=== PATIENT | female | born 1950 | race Caucasian/White ===

== ENCOUNTER → 2024-11-28 | Outpatient (CLI) | payer MEDICARE, BC, SELFPAY ==
--- NOTE | 2024-11-28 10:15 | XR_ITS ---
Examination: Screening digital mammography, bilateral Computer aided detection 3-D breast Tomosynthesis, bilateral Date and time of exam: November 28, 2024 tendons 13 hours Compared to mammograms dating to August 20, 2016 Indication: Screening Technique: Nonmagnified MLO, CC views of the breasts to been obtained, reconstructed from 3-D Tomosynthesis images. R2 computer aided detection program utilized for evaluation of suspicious masses and/or abnormal calcifications. 3-D Tomosynthesis images obtained. Findings: Scattered areas of fibroglandular density Intact implants No interval suspicious masses Impression: BI-RADS category II: Benign Findings. Recommend 1 year follow-up mammogram.
== END | disposition home or self-care (01) ==
LOC: CDIM 10:06
PROVIDERS: PCP Nurse Practitioner Family; Referring Provider Nurse Practitioner Family; Visit Provider Nurse Practitioner Family
DX: Z12.31 Encounter for screening mammogram for malignant neoplasm of breast (principal); R92.323 Mammographic fibroglandular density, bilateral breasts; R92.1 Mammographic calcification found on diagnostic imaging of breast
CPT/HCPCS: 77063; 77067

== ENCOUNTER 2025-04-02 10:37 | Inpatient (IN) | payer MEDICARE, BC, SELFPAY ==
[2025-04-02] VITALS (14 sets, daily range): BP systolic 102–164; BP diastolic 56–91; PULSE 74–88; RESP 14–95; TEMP 36.2–36.8; O2SAT 90–98; BMI 26.5; BMI 29.3
--- NOTE | 2025-04-02 10:53 | XR_ITS ---
Examination: CT lumbar spine, without contrast. 2-D sagittal reconstructions. 2-D coronal reconstructions. 3-D reconstructions. Date and time of exam:April 02, 2025 1102 hours INDICATIONS: Lifting injury today followed by a lower back pain CTDI: vol (mGy):19.4 DLP: (mGycm):196 Technique: Multiple 1.25 mm axial sections of the lumbar spine without intravenous contrast have been obtained. 2-D sagittal and coronal reconstructions have been obtained. 3-D reconstructions have been obtained. Low dose protocols were performed. One or more of the following dose reduction techniques were used; automated exposure control, adjustment of the mA and/or KV according to patient size, use of iterative reconstruction technique. Findings: Severe osteopenia. No lumbar vertebral body compression fracture. Cortical bone destruction involving contiguous margins L5-S1 Pedicles laminated transverse and posterior spinous processes intact Sclerotic focus in the right first sacral segment, 10 mm, axial image 149 and 6 mm sclerotic focus posterior L1 vertebral body No focal disc protrusion IMPRESSION: Findings suspicious for osteomyelitis discitis L5-S1 level Sclerotic foci right first sacral segment and L1 vertebral body, consider osteoblastic metastatic disease Consider whole body bone scan follow-up
[2025-04-02] MEDS: HYDROcodone/APAP 5/325 TABLET 1 TAB PO (11:14)
[2025-04-02] MEDS: KETOROLAC INJ 60 MG/2 ML VIAL 30 MG IM (11:16)
--- NOTE | 2025-04-02 11:57 | PD.EDRME ---
Rapid Medical Screening Exam RME Arrival date/time: 04/02/25 10:37 74-year-old female presents to the Emergency Department for complaints of lower back pain Chief Complaint: Back Pain/Injury Time Seen by Provider: 04/02/25 10:53 Vital signs: Vital Signs Temperature 98.3 F 04/02/25 10:49 Pulse Rate 88 04/02/25 10:49 Respiratory Rate 16 04/02/25 10:49 Blood Pressure 150/89 H 04/02/25 10:49 Pulse Oximetry (%) 98 04/02/25 10:49 Oxygen Delivery Method Room Air 04/02/25 10:49
[2025-04-02 12:33] LABS: Lactate (Lactic Acid) 1.4 mMol/L (0.4-2.0)
[2025-04-02 12:35] LABS: Basophils # (Auto) 0.1 Thou/mm3 (0.0-0.2); Basophils % (Auto) 1 % (0-2.5); Eosinophils # (Auto) 0.1 Thou/mm3 (0.0-0.5); Eosinophils % (Auto) 1 % (0-10); Hematocrit 41.2 % (36.0-46.0); Hemoglobin 13.5 g/dL (12.0-16.0); Immature Granulocytes Auto 0.09 Thou/mm3 (0.00-0.00); Lymphocytes # (Auto) 2.6 Thou/mm3 (1.0-4.8); Lymphocytes % (Auto) 24 % (10-50); Mean Corpuscular HGB Conc 32.8 g/dl (31.0-37.0); Mean Corpuscular Hemoglobin 24.3 pg (25.0-35.0); Mean Corpuscular Volume 74 fL (80-100); Monocytes # (Auto) 0.8 Thou/mm3 (0.0-0.8); Monocytes % (Auto) 8 % (0-12); Neutrophils # (Auto) 7.0 Thou/mm3 (1.8-7.7); Neutrophils % (Auto) 66 % (37-80); Nucleated Red Blood Cell # 0.00 Thou/mm3 (0.00-0.00); Nucleated Red Blood Cell % 0 /100 WBC (0); Platelet Count 279 Thou/mm3 (140-440); RDW Standard Deviation 46.5 fL (36.4-46.3); Red Blood Count 5.55 Miln/mm3 (4.00-5.20); White Blood Count 10.6 Thou/mm3 (3.6-11.0)
[2025-04-02 12:49] LABS: INR 0.9 (0.9-1.3); Prothrombin Time 10.4 Seconds (9.0-12.2)
[2025-04-02 12:50] LABS: Sed Rate (ESR) 34 mm/hr (0-30)
[2025-04-02 12:59] LABS: Alanine Aminotransferase 24 U/L (10-49); Albumin, Serum 4.4 gm/dL (3.4-4.8); Albumin/Globulin Ratio 1.6 (1.2-2.2); Alkaline Phosphatase 123 U/L (46-116); Anion Gap 10 (7-16); Aspartate Amino Transferase 33 U/L (0-34); BUN/Creatinine Ratio 11 Ratio (12-20); Bilirubin,Total 1.0 mg/dL (0.3-1.2); Blood Urea Nitrogen 10 mg/dL (9-23); C-Reactive Protein 1.6 mg/dL (0.0-0.9); Calcium 9.3 mg/dL (8.3-10.6); Calcium (Corrected) 9.3 mg/dL (8.5-10.1); Carbon Dioxide 25.0 mMol/L (20.0-31.0); Chloride 103 mMol/L (98-107); Creatinine (Component) 0.9 mg/dL (0.6-1.3); Estimated Creatinine Clearance 51.5 mL/min (>60); Globulin 2.7 gm/dL (2.3-3.5); Glucose 112 mg/dL (74-106); Osmolality,Calculated 275 (275-295); Potassium 4.3 mMol/L (3.4-5.1); Procalcitonin 0.06 ng/ml (0.0-0.49); Sodium 138 mMol/L (136-145); Total Protein 7.1 gm/dL (5.7-8.2); eGFR > 60 See Note
[2025-04-02 13:03] LABS: Collection Type, Urine Clean Catch
[2025-04-02 13:06] LABS: Bacteria,Urine Rare; Bilirubin,Urine Negative (Negative); Blood,Urine Negative (Negative); Clarity,Urine Turbid (Clear/Hazy); Color,Urine Yellow (Lt Yel-Yel); Glucose, Urine Negative (Negative); Hyaline Casts,Urine < 1 /hpf (0-1); Ketones,Urine Negative (Negative); Leukocyte Esterase,Urine Positive (Negative); Nitrite,Urine Negative (Negative); PH,Urine 6.0 (5.0-7.0); Protein,Urine Negative (Neg - Trace); RBC,Urine 9 /hpf (0-3); Specific Gravity,Urine 1.023 (1.001-1.035); Squamous Epithelial Cell,Urine 7 /hpf (0-5); Urobilinogen,Urine Negative mg/dL (0.0-1.0); WBC,Urine 21 /hpf (0-5)
--- NOTE | 2025-04-02 13:06 | PD.EDADULT ---
ED General RME/HPI General Chief complaint: Back Pain/Injury Stated complaint: lower back pain x 5days Time Seen by Provider: 04/02/25 10:53 Arrival date/time: 04/02/25 10:37 RME / HPI RME / HPI narrative: 04/02/25 10:37 74-year-old female presents to the Emergency Department for complaints of lower back pain DR. VALENZUELA MAIN ED EVALUATION: 74 year old female with history of Lichen sclerosus, Crohn's disease, osteopenia, presents to the ED for evaluation of lower back pain that began 2 months ago. Pain is described as aching, localized to the lower back, and is worse on the right side. Reports that the pain typically resolves with Aleve. However, on , while doing yard work, she stumbled a few times, and since then the pain has worsened. Now experiencing difficulty managing the pain with [id number] medications. The pain is aggravated by movement, but she is still able to walk. Denies any loss of function in her arms or legs, and there is no reported saddle numbness or urinary/bowel incontinence. Related Data Home Medications ?Medication ?Instructions ?Recorded ?Confirmed No Known Home Medications 05/29/24 05/29/24 Allergies Allergy/AdvReac Type Severity Reaction Status Date / Time Sulfa (Sulfonamide Allergy Intermediate Rash Verified 04/02/25 10:40 Antibiotics) Review of Systems Review of Systems Systems Reviewed: All systems reviewed, normal except as documented Past Medical History Past Medical History NEUROLOGIC: Negative Neurological Disorders or Seizures CARDIAC: Negative Cardiac Disorders or Congestive Heart Failure RESPIRATORY: Positive Asthma; Negative Chronic Obstructive Pulmonary Disease (COPD) GASTROINTESTINAL: Positive Gastrointestinal Disorders, Gall Bladder Disease and Crohn's Disease GENITOURINARY: Negative Genitourinary Disorders or Renal Disease MUSCULOSKELETAL: Positive Musculoskeletal Disorders and Arthritis ENDOCRINE: Negative Endocrine Disorders, Diabetes Mellitus Type 1 or Diabetes Mellitus Type 2 HEMATOLOGIC: Negative Blood Disorders or Sickle Cell Disease OTHER HISTORY: Positive Chicken Pox, Measles and Mumps; Negative Blood Transfusions, Anesthesia Reactions or Cancer Surgical History SURGICAL: Positive Oral Surgery (wisdom teeth) and Section Social History SMOKING STATUS: Never smoker SUBSTANCE USE: does not use ED Exam Narrative Physical exam: Physical Exam: General: The vital signs were reviewed. The patient is non-toxic, in no apparent distress and appears healthy with a patent airway, no respiratory distress and has no apparent circulatory problems. Head & Scalp: Normocephalic, atraumatic. Face: Appears normal and is without lesions, deformity. Ears: Left external pinna appears normal. Right external pinna appears normal. Eyes: The sclera is anicteric. No obvious photophobia. The Left and Right Orbit/Lid/Conjunctiva appears normal without swelling, discoloration or injection. Nose: The nose is without deformity, discharge or tenderness; Throat: Appears normal. The mucous membranes are pink and moist without exudates, redness or mass seen. The tongue appears normal. Neck: The neck is supple and no apparent mass or adenopathy. Chest: The chest wall is normal in size and symmetry and has no chest wall tenderness or crepitus. The patient displays normal ventilator effort without retractions, accessory muscle use and has adequate air movement bilaterally with no wheezes and no rales. Cardiovascular: Regular rate and rhythm; No murmurs, rubs, or gallops; Gastrointestinal: The abdomen appears normal. No obvious hernias or mass. The abdomen is soft and benign, non-distended, with no pain, no guarding and no rebound tenderness. Bowel sounds are present and normal sounding. No CVA tenderness. Genitourinary: Back/Spine: Complains of lower lumbar pain but normal inspection Extremities/Musculoskeletal/lymphatic: The bilateral upper and lower extremities are warm. There is no evidence of arterial insufficiency. There is no evidence of venous insufficiency/edema. The patient spontaneously moves bilateral upper and lower extremities with no pain and no limitation of movement. There is no apparent, injury or trauma. Skin: The skin is warm, dry and intact. No rashes. No petechia. No purpura. No abnormal bruising. The color is appropriate with no cyanosis. Mental status/Psychiatric: Mental status is appropriate for age. The patient has no apparent delusions, visual hallucinations, no apparent audible hallucinations. The patient has no apparent suicidal thoughts/ideation and no apparent homicidal thoughts/ideation. Neurological: The patient is awake, alert, interactive, cordial, cooperative and is oriented to name and situation. The patient follows commands and answers historical question with no impairment. There is no visual disturbance apparent. The pupils are equal and reactive bilaterally with normal eye movements and no diplopia The bilateral upper and lower extremities have normal strength, normal range of motion and normal functioning. The gait, station and balance were not tested due to acuity and low back pain Course Quality Measures none Orders Category Date Time Status CT lumbar spine wo con Stat Exams 04/02/25 10:53 Completed Blood Culture (Lab) Stat Lab 04/02/25 12:07 Received CBC Stat Lab 04/02/25 12:07 Completed CMP [Comprehensive Metabolic Panel] Stat Lab 04/02/25 12:07 Completed CRP [C-Reactive Protein] Stat Lab 04/02/25 12:07 Completed ESR [Sed Rate (ESR)] Stat Lab 04/02/25 12:07 Completed Lactic Acid [Lactate (Lactic Acid)] Stat Lab 04/02/25 12:07 Completed PT [Prothrombin Time with INR] Stat Lab 04/02/25 12:07 Completed Procalcitonin Stat Lab 04/02/25 12:07 Completed UA, C/S IF [Urinalysis, C/S if Indicated] Stat Lab 04/02/25 12:56 Completed Urine Culture Stat Lab 04/02/25 12:56 Received HYDROcodone*/APAP 5/325 [Climax 5/325] Med 04/02/25 10:53 Discontinued 1 tab PO X1 ONE Ketorolac Inj [Toradol Inj] Med 04/02/25 10:53 Discontinued 30 mg IM X1 ONE Morphine Inj Med 04/02/25 13:44 Discontinued 4 mg IVP X1 ONE Ondansetron Inj [Zofran Inj] Med 04/02/25 13:44 Discontinued 4 mg IV X1 ONE Piper/Tazo 3.375 gm Premix [Zosyn] Med 04/02/25 13:42 Discontinued 3.375 gm in 50 ml IV X1 Vancomycin Inj 1,000 mg Med 04/02/25 13:42 Discontinued Sodium Chloride 0.9% 250 ml [Ns] 250 ml IV X1 Vital Signs Vital signs: Vital Signs Temperature 98.3 F 04/02/25 10:49 Pulse Rate 88 04/02/25 10:49 Respiratory Rate 16 04/02/25 10:49 Blood Pressure 150/89 H 04/02/25 10:49 Pulse Oximetry (%) 98 04/02/25 10:49 Oxygen Delivery Method Room Air 04/02/25 10:49 Pulse ox is 98% on room air which is adequate. Discharge Plan Plan Patient Disposition: Admit Acute Care w/in Hospital Discharge Disposition comment: Hospitalist admit Problem List Clinical Impression: Acute osteomyelitis of lumbar spine, Hx of Crohn's disease, Intractable back pain MDM Narrative [facility] hospital course: Patient is 74-year-old who comes in states she has had increasing and worsening low back pain for the past 2 months that is much worse in the last week. She also has history of Crohn's disease and lichen sclerosis. She has had no acute flares of Crohn's but has been on doses of prednisone in the past. Medical workup was initiated and reveals a white count of 10.6 hemoglobin 13.5 MCV of 74 PT/INR within normal limits. Electrolytes are normal kidney functions normal glucose 112 lactic acid 1.4. Transaminases are within normal limits. C-reactive protein was 1.6 slightly elevated. Urinalysis has 21 white cells and 7 squames is not on clean-catch urine and she currently has no urinary symptoms. Patient got some Toradol and hydrocodone tablet upfront and her pain is little bit better but she still is quite uncomfortable she barely moves CT scan of the back reveals osteomyelitis of her lumbar spine. I called the radiologist to discuss this with him he does not feel there is any obvious malignancy but they would not be against doing a bone scan or further workup for that. Clinically patient's where she has got evidence osteomyelitis will start on Vanco and Zosyn. I called the hospitalist they will be admitting. Clinical Information Provided by patient Medical Records Reviewed [facility] I reviewed ED visit on 02/12/2022 Meds/Rx Considered, not Ordered None Labs/Rad/Tests considered, not Ordered None Chronic Illness/Social Conditions which may negatively complicate care or outcome(s)-explain: None or not applicable EKG EKG not done Lab Interpretation Labs: see narrative above Imaging Imaging interpretation: see narrative above Radiology reports / interpretation(s): Ordering Physician: Dali CRAWFORD)Clemente NP Date of Service: 04/02/25 Procedure(s): CT lumbar spine wo con Accession Number(s): [id number] cc: Mercedes Mathis NP; Dali CRAWFORD)Clemente NP; Harjinder Chicas MD~ Examination: CT lumbar spine, without contrast. 2-D sagittal reconstructions. 2-D coronal reconstructions. 3-D reconstructions. Date and time of exam:April 02, 2025 1102 hours INDICATIONS: Lifting injury today followed by a lower back pain CTDI: vol (mGy):19.4 DLP: (mGycm):196 Technique: Multiple 1.25 mm axial sections of the lumbar spine without intravenous contrast have been obtained. 2-D sagittal and coronal reconstructions have been obtained. 3-D reconstructions have been obtained. Low dose protocols were performed. One or more of the following dose reduction techniques were used; automated exposure control, adjustment of the mA and/or KV according to patient size, use of iterative reconstruction technique. Findings: Severe osteopenia. No lumbar vertebral body compression fracture. Cortical bone destruction involving contiguous margins L5-S1 Pedicles laminated transverse and posterior spinous processes intact Sclerotic focus in the right first sacral segment, 10 mm, axial image 149 and 6 mm sclerotic focus posterior L1 vertebral body No focal disc protrusion IMPRESSION: Findings suspicious for osteomyelitis discitis L5-S1 level Sclerotic foci right first sacral segment and L1 vertebral body, consider osteoblastic metastatic disease Consider whole body bone scan follow-up Dictated By: Harjinder Chicas MD Signed By: <Electronically signed by Harjinder Chicas MD in [place]> 04/02/25 1145 Medication Administration(s) Medication Administration History Acetaminophen (Acetaminophen 325 Mg Tablet) 650 mg PO Q6H PRN PRN Reason: Mild Pain 1-3 or Fever 100.3 Stop: 05/02/25 14:12 Hydrocodone Bitart/Acetaminophen (Hydrocodone/Apap 5/325 Tablet) 1 tab PO Q4HR PRN PRN Reason: PAIN SCALE 4-6 (Moderate Stop: 04/07/25 14:12 Famotidine (Famotidine 20 Mg Tablet) 20 mg PO BID OSIEL Stop: 05/02/25 14:29 Last Admin: 04/02/25 15:06 Dose: 20 mg Documented By: CG Piperacillin/Tazobactam/Dextrose (Zosyn) 3.375 gm in 50 mls @ 12.5 mls/hr IV Q8HR OSIEL; Protocol Stop: 04/09/25 21:59 Morphine Sulfate (Morphine Sulf Inj 10 Mg/Ml Vial) 2 mg IVP Q4HR PRN PRN Reason: PAIN SCALE 7-10 (Severe Stop: 04/07/25 14:12 Ondansetron HCl (Ondansetron Inj 2 Mg/Ml Inj 2 Ml) 4 mg IVP Q6H PRN; Protocol PRN Reason: NAUSEA OR VOMITING Stop: 05/02/25 14:12 Pharmacy Consult (Vancomycin Pharmacy To Dose 1 Each Each) 1 each IV QDAY PRN PRN Reason: CONSULT Stop: 05/03/25 08:59 Sennosides (Senna Tablet) 1 tab PO QDAY OSIEL; Protocol Stop: 05/02/25 14:29 Last Admin: 04/02/25 15:05 Dose: 1 tab Documented By: CG Discontinued Medications Hydrocodone Bitart/Acetaminophen (Hydrocodone/Apap 5/325 Tablet) 1 tab PO X1 ONE Stop: 04/02/25 10:54 Last Admin: 04/02/25 11:14 Dose: 1 tab Documented By: Vancomycin HCl 1,000 mg/ (Sodium Chloride) 250 mls @ 120 mls/hr IV X1 ONE Stop: 04/02/25 15:46 Last Infusion: 04/02/25 17:14 Dose: Infused Documented By: Admin: 04/02/25 15:08 Dose: 120 mls/hr Documented By: CG Piperacillin/Tazobactam/Dextrose (Zosyn) 3.375 gm in 50 mls @ 100 mls/hr IV X1 ONE Stop: 04/02/25 14:11 Last Infusion: 04/02/25 15:40 Dose: Infused Documented By: Admin: 04/02/25 15:00 Dose: 100 mls/hr Documented By: CG Ketorolac Tromethamine (Ketorolac Inj 60 Mg/2 Ml Vial) 30 mg IM X1 ONE Stop: 04/02/25 10:54 Last Admin: 04/02/25 11:16 Dose: 30 mg Documented By: Morphine Sulfate (Morphine Sulf Inj 10 Mg/Ml Vial) 4 mg IVP X1 ONE Stop: 04/02/25 13:45 Last Admin: 04/02/25 15:05 Dose: 4 mg Documented By: CG Ondansetron HCl (Ondansetron Inj 2 Mg/Ml Inj 2 Ml) 4 mg IV X1 ONE; Protocol Stop: 04/02/25 13:45 Last Admin: 04/02/25 15:05 Dose: 4 mg Documented By: CG See above Diagnosis Most likely dx, and/or detailed dx discussion: Acute osteomyelitis Hx of Crohn's disease Intractable back pain Dispositon Disposition: Admit
[2025-04-02 13:07] LABS: Culture Indicated,Urine Yes
--- NOTE | 2025-04-02 14:13 | ECHO_ITS ---
Transthoracic Echo Report Ht (in): 63 Wt (lb): 150 Exam Location: Echo Lab Status: Emergency Site Safety Manager: Evonne Sierra Indications: Procedure Performed: BP: 158 / 91 HR: 75 Technical Quality: Technically difficult study MEASUREMENTS (Male / Female) Normal Values 2D ECHO LV Diastolic Diameter PLAX 4.0 cm 4.2 - 5.9 / 3.9 - 5.3 cm LV Systolic Diameter PLAX 2.6 cm IVS Diastolic Thickness 1.0 cm 0.6 - 1.0 / 0.6 - 0.9 cm LVPW Diastolic Thickness 1.0 cm 0.6 - 1.0 / 0.6 - 0.9 cm LV Relative Wall Thickness 0.5 LVOT Diameter 1.6 cm Aortic Root Diameter 2.8 cm LA Volume Index 14.3 cm?/m? 16 - 28 cm?/m? M-MODE Aortic Root Diameter MM 2.6 cm LA Systolic Diameter MM 3.4 cm LA Ao Ratio MM 1.3 AV Cusp Separation MM 2.1 cm DOPPLER AV Peak Velocity 102.0 cm/s AV Peak Gradient 4.2 mmHg AV Mean Gradient 2.0 mmHg AV Velocity Time Integral 21.9 cm LVOT Peak Velocity 90.9 cm/s LVOT Peak Gradient 3.3 mmHg LVOT Velocity Time Integral 21.0 cm LVOT Cardiac Index 1693.1 cm?/min?m? AV Area Cont Eq vti 1.8 cm? AV Area Cont Eq pk 1.7 cm? MV Area PHT 3.8 cm? Mitral E Point Velocity 43.2 cm/s Mitral A Point Velocity 75.2 cm/s Mitral E to A Ratio 0.6 LV E' Lateral Velocity 7.7 cm/s Mitral E to LV E' Lateral Ratio 5.6 LV E' Septal Velocity 7.2 cm/s Mitral E to LV E' Septal Ratio 6.0 PV Peak Velocity 90.9 cm/s PV Peak Gradient 3.3 mmHg FINDINGS Left Ventricle Normal left ventricular size, wall thickness, systolic function with no obvious regional wall motion abnormalities. The ejection fraction is visually estimated at 65%. There is grade I diastolic dysfunction of the left ventricle (impaired relaxation pattern). Right Ventricle The right ventricle is normal in size and systolic function. Left Atrium The left atrium is normal by two-dimensional, color flow and Doppler imaging with no structural abnormalities, no thrombus formation present. Right Atrium The right atrium is normal by two-dimensional imaging, color flow and Doppler imaging with no structural abnormalities, no thrombus formation present. Atrial Septum The interatrial septum appears normal with no evidence of a shunt. Aorta The aorta is normal by two-dimensional, color flow and Doppler interrogation. Mitral Valve The mitral valve is normal by two-dimensional, color flow and Doppler interrogation. There is no significant mitral valve regurgitation, stenosis or prolapse. Aortic Valve The aortic valve is trileaflet and normal by two-dimensional, color flow and Doppler interrogation. There is no significant aortic valve regurgitation. Tricuspid Valve The tricuspid valve is normal by two-dimensional, color flow and Doppler interrogation. There is no significant tricuspid valve regurgitation. Pulmonic Valve The pulmonic valve is not well visualized. There is no significant pulmonic valve regurgitation. Vessels The pulmonary artery appears normal. The inferior vena cava pulmonary and hepatic veins appear normal. Pericardium The pericardium is normal by two-dimensional imaging. There is no significant pericardial effusion. CONCLUSIONS Indication: Osteomyelities, rule out endocarditis Normal LV size Estimated EF 65-70%. Grade I diastolic dysfunction. Normal RV size and function. Normal RVSP. No clear vegetation noted but TTE suboptimal to rule out any endocarditis. Consider AMELIA if high clinical risk of suspicion. Trace TRRamila Jennings (Electronically Signed) Final Date: 02 April 2025 23:15
[2025-04-02] MEDS: PIPER/TAZO 3.375 GM PREMIX 3.375 GM/50 ML BAG IV ×2 (15:00→22:18)
[2025-04-02] MEDS: MORPHINE SULF INJ 10 MG/ML VIAL 4 MG IVP (15:05)
[2025-04-02] MEDS: ONDANSETRON INJ 2 MG/ML INJ 2 ML 4 MG IV (15:05)
[2025-04-02] MEDS: FAMOTIDINE 20 MG TABLET PO ×2 (15:06→22:17)
[2025-04-02] MEDS: Vancomycin Inj 1,000 MG in SODIUM CHLORIDE 0.9% 250 ML 250 ML 120 MG IV (15:08)
--- NOTE | 2025-04-02 16:21 | XR_ITS ---
Examination: MRI lumbar spine, without intravenous contrast. MRI lumbar spine , with intravenous contrast. Exam date and time: April 02, 2025 1922 hours INDICATIONS: Low back pain months, cortical bone destruction contiguous margins L5-S1 on CT lumbar spine today Technique: Multiple axial, sagittal and coronal images of the lumbar spine have been obtained with the Siemens high-resolution 1.5 Josefa MRI scanner. Images obtained included T2 weighted fat suppressed sagittal sections, TR 3500, TE 46, T2 weighted coronal fat suppressed images, TR 3050, TE 84, T2-weighted transverse fat suppressed images, TR 30-60, TE 63, proton density transverse images, TR 4720, TE 46, and T1 weighted coronal images, TR 560, TE 13. Axial, sagittal and coronal images are obtained post intravenous injection of 13 cc gadolinium. Findings: Advanced disc narrowing L5-S1 with cortical erosion involving the contiguous endplates Postcontrast images demonstrate enhancement of the L5-S1 disc although not the vertebral bodies There also is enhancement of the L2-L3 disc Diffuse lumbar disc desiccation No lumbar fracture Minor lumbar disc bulges L4-L5, L5-S1 IMPRESSION: No findings diagnostic for osteomyelitis Mild discitis at the L5-S1, L2-L3 level
--- NOTE | 2025-04-02 18:00 | PD.RESHP ---
Documentation for date of: 04/02/25 Luis is a 74 year old female with a limited past medical history of Crohns disease with follows Dr. Anders on prednisone as needed for flare ups. Previous colonoscopy with Dr. Anders 2023. Patient presented with worsening lower back pain that began approximetly 1 month ago. Patient denied trauma to area or any recent punctures/surgical interventions. Previously prescribed tramaodol by pcp which had kept pain tolerable but within the last 5 days worsening. Patient deneid urinary incontinence and continues to have full range of motion with bilateral lower extremities. No elevated WBC count. Microcytic anemia noted, likely in the setting of Crohns disease, outpaitnet follow up. CRP 1.6. [facility] CT noted for Sclerotic foci at L1 vertebral body, consider osteoblastic metastitc disease, outpatient follow up with whole body bone scan. Concern for osteomyelitis L5-S1. Patient admitted intractable back pain, failed out patient pain managment and concern for osteomyelitis. IV antibiotics started. [facility] MRI spine. Pending blood cultures. Consider CT guided bone biopsy. Dr. Cleaning consulted. Echo pending. Blood cutlures pending. Patient may benefit from dexa bone scan outpatient. HPI History of Present Illness History of present illness: 74 year old female with PMH of Lichen sclerosus, Crohn's disease, osteopenia, presented to the ED on 04/02/2020 with lower back pain started roughly 1 month ago. She noted that her lower back pain started while doing gardening work. Lower back pain worsened 5 days ago when she was trying to lift an object at her garden. Tried [id number] pain medication but pain was no longer tolerable. Pain is at the lower back and also radiates to the right side. Pain is worsened by movement but she can still walk. She denied any weakness in her upper and lower extremities. Denied any recent injuries, cut, surgeries. She does not have any chest pain, palpitations, headache, dizziness, fevers, or chills. Medical history: As stated above Surgical history: Right knee replacement in [address] Freddie Howard in [place], Allergies: See list in the EMR Medications: Pending official med rec Family history: Father had CABG at 80s, Mother has liver cancer at 90s and due to sepsis. Social history: Denies smoking cigarettes, drinking alcohol or using other illicit drugs ROS: All 12 systems assessed and the patient denies unless otherwise stated in HPI In the ED, patient had a white count of 10.6 hemoglobin 13.5 MCV of 74 PT/INR within normal limits. Electrolytes are normal kidney functions normal glucose 112 lactic acid 1.4. Transaminases are within normal limits. C-reactive protein was 1.6 slightly elevated. Urinalysis has 21 white cells and 7 squames is not on clean-catch urine and she had no urinary symptoms. Received toradol and hydrocodone tablet for pain. CT scan of the back revealed osteomyelitis of her lumbar spine and possible osteoblastic metastatic disease. Recommended body bone scan follow up. Patient started on vancomycin and zosyn. Patient will be admitted for management of her osteomyelitis and possible osteoblastic metastatic disease. Exam Vital Signs Temp Pulse Resp BP Pulse Ox O2 Del Method 98.0 F 76 14 102/56 L 96 Room Air 04/02/25 16:33 04/02/25 16:33 04/02/25 16:33 04/02/25 16:33 04/02/25 16:33 04/02/25 16:33 Narrative Exam General: No acute distress, well nourished Eye: PERRL, EOMI, normal conjunctiva, no scleral icterus HENT: Normocephalic, atraumatic, hearing intact to conversation at normal volume, moist oral mucosa Neck: Supple, non-tender, no JVD, no lymphadenopathy Lungs: Non-labored respirations, symmetric chest rise, Clear to auscultate bilaterally Heart: Peripheral pulses intact bilaterally Abdomen: Soft, non-tender, non-distended Musculoskeletal: Normal range of motion and strength Skin: Skin is warm, dry, no rashes or lesions. Psychiatric: Cooperative, appropriate mood and affect Neuro: Cranial nerves II-XII grossly intact. Strength 5/5 throughout. Sensations intact to light touch. Results: Labs 04/03/25 05:40 04/03/25 05:40 Labs: Short CBC 04/02/25 Range/Units 12:07 WBC 10.6 (3.6-11.0) Thou/mm3 Hgb 13.5 (12.0-16.0) g/dL Hct 41.2 (36.0-46.0) % Plt Count 279 (140-440) Thou/mm3 BMP 04/02/25 12:07 Sodium 138 Potassium 4.3 Chloride 103 Carbon Dioxide 25.0 BUN 10 Creatinine 0.9 Glucose 112 H Calcium 9.3 Liver Function 04/02/25 Range/Units 12:07 Total Bilirubin 1.0 (0.3-1.2) mg/dL AST 33 (0-34) U/L ALT 24 (10-49) U/L Alkaline Phosphatase 123 H (46-116) U/L Albumin 4.4 (3.4-4.8) gm/dL Urine 04/02/25 Range/Units 12:56 Urine Color Yellow (Lt Yel-Yel) Urine Clarity Turbid A (Clear/Hazy) Urine pH 6.0 (5.0-7.0) Ur Specific [place] 1.023 (1.001-1.035) Urine Protein Negative (Neg - Trace) Urine Glucose (UA) Negative (Negative) Quality Measures Quality Measures none Advance care planning discussed with:: patient Medications Home Medications and Allergies Home Medications ?Medication ?Instructions ?Recorded ?Confirmed ?Type tramadol 50 mg tablet 50 mg PO Q4H PRN pain 04/02/25 04/02/25 History Allergies Allergy/AdvReac Type Severity Reaction Status Date / Time Sulfa (Sulfonamide Allergy Intermediate Rash Verified 04/02/25 10:40 Antibiotics) Visit Medications Acetaminophen (Acetaminophen 325 Mg Tablet) 650 mg PO Q6H PRN PRN Reason: Mild Pain 1-3 or Fever 100.3 Stop: 05/02/25 14:12 Hydrocodone Bitart/Acetaminophen (Hydrocodone/Apap 5/325 Tablet) 1 tab PO Q4HR PRN PRN Reason: PAIN SCALE 4-6 (Moderate Stop: 04/07/25 14:12 Famotidine (Famotidine 20 Mg Tablet) 20 mg PO BID OSIEL Stop: 05/02/25 14:29 Last Admin: 04/02/25 15:06 Dose: 20 mg Piperacillin/Tazobactam/Dextrose (Zosyn) 3.375 gm in 50 mls @ 12.5 mls/hr IV Q8HR [facility]; Protocol Stop: 04/09/25 21:59 Morphine Sulfate (Morphine Sulf Inj 10 Mg/Ml Vial) 2 mg IVP Q4HR PRN PRN Reason: PAIN SCALE 7-10 (Severe Stop: 04/07/25 14:12 Ondansetron HCl (Ondansetron Inj 2 Mg/Ml Inj 2 Ml) 4 mg IVP Q6H PRN; Protocol PRN Reason: NAUSEA OR VOMITING Stop: 05/02/25 14:12 Pharmacy Consult (Vancomycin Pharmacy To Dose 1 Each Each) 1 each IV QDAY PRN PRN Reason: CONSULT Stop: 05/03/25 08:59 Sennosides (Senna Tablet) 1 tab PO QDAY OSIEL; Protocol Stop: 05/02/25 14:29 Last Admin: 04/02/25 15:05 Dose: 1 tab Discontinued Medications Hydrocodone Bitart/Acetaminophen (Hydrocodone/Apap 5/325 Tablet) 1 tab PO X1 ONE Stop: 04/02/25 10:54 Last Admin: 04/02/25 11:14 Dose: 1 tab Vancomycin HCl 1,000 mg/ (Sodium Chloride) 250 mls @ 120 mls/hr IV X1 ONE Stop: 04/02/25 15:46 Last Infusion: 04/02/25 17:14 Dose: Infused Piperacillin/Tazobactam/Dextrose (Zosyn) 3.375 gm in 50 mls @ 100 mls/hr IV X1 ONE Stop: 04/02/25 14:11 Last Infusion: 04/02/25 15:40 Dose: Infused Ketorolac Tromethamine (Ketorolac Inj 60 Mg/2 Ml Vial) 30 mg IM X1 ONE Stop: 04/02/25 10:54 Last Admin: 04/02/25 11:16 Dose: 30 mg Morphine Sulfate (Morphine Sulf Inj 10 Mg/Ml Vial) 4 mg IVP X1 ONE Stop: 04/02/25 13:45 Last Admin: 04/02/25 15:05 Dose: 4 mg Ondansetron HCl (Ondansetron Inj 2 Mg/Ml Inj 2 Ml) 4 mg IV X1 ONE; Protocol Stop: 04/02/25 13:45 Last Admin: 04/02/25 15:05 Dose: 4 mg Assessment & Plan Plan 74 year old female with PMH of Lichen sclerosus, Crohn's disease, osteopenia, presented to the ED on 04/02/2020 with lower back pain started roughly 1 month ago and worsened 5 days ago after trying to lift an object. Patient will be admitted for management of her osteomyelitis and possible osteoblastic metastatic disease. #Intractable Lumbar Pain #Possible Osteomyelitis -VS spinal metastasis. Patient has had lower back pain that has been lasting for 1 month and suddenly getting worse after lifting. -Temp: 97.2F, WBC:10.6, ESR:34 and CRP:1.6, Minimally elevated ESR and CRP on admission. -Lumbar spine CT (04/02/2025): Findings suspicious for osteomyelitis discitis L5-S1 level, Sclerotic foci right first sacral segment and L1 vertebral body, consider osteoblastic metastatic disease. Plan: -F/u on Blood Culture and Urine culture -F/u on CBC -ECHO ordered to r/o endocarditis. -MRI lumbar w/ and w/o contrast pending -After MRI, consider bone biopsy -Continue IV Vancomycin and IV Zoysn 3.375g #Osteoblastic metastatic disease -Lumbar spine CT (04/02/2025): consider osteoblastic metastatic disease. -Referral to Outpatient whole body bone scan. #Crohn's disease -Mesalamine listed as home medication but patient was only taking prednisone as a flare-up -Currently has Dr. Anders as a GI specialist Disposition: Admitted for possible osteomyelitis. Pending Blood culture and MRI lumbar w/ and w/o Diet: Regular GI prophylaxis: Famotidine DVT prophylaxis: SCD Code: FULL Assessment and plan discussed with my attending physician Dr. Willingham and Dr. Aparicio (PGY-2) Dr. Martell (PGY-1)- Internal medicine resident - The patient's plan was discussed with attending Dr. Maulik Aparicio MD PGY2 Internal Medicine Attending Provider Attestation/Addendum I have examined the patient, reviewed labs and imaging findings, discussed the case with the resident(s), and reviewed entered orders. I agree with the plan of care as outlined in this note, with these additional summaries/recommendations: After examination of the patient and review of the clinical data, I feel that this patient needs admission to the hospital for further treatment and evaluation. Patient is a 74-year-old female with a medical history of Crohn's disease on as needed prednisone, lichen sclerosis, osteopenia, and chronic lower back pain presents to [facility] emergency department on 04/02/2025 with chief complaint of intractable back pain and failed outpatient pain management. Patient seen at bedside. She endorses severe intractable back pain. Lumbar spine revealed suspicion for osteomyelitis/discitis at L5-S1 level. ESR 34 and CRP 1.6. Patient does take intermittent prednisone although no clear source for osteomyelitis of the spine. We will obtain MRI spine to evaluate if osteomyelitis is present. Continue IV antibiotics and consult in-house infectious disease. Order blood cultures and follow-up results when available. Continue pain management and obtain physical therapy evaluation. Lumbar spine CT also revealed sclerotic foci in first sacral segment and L1 vertebral body suspicious for osteoblastic metastatic disease and we will evaluate further with MRI. Patient will likely need whole-body scan in the future. Patient's Crohn's disease appears stable and we will defer prednisone for now in the setting of possible infection. Urinalysis suspicious for urinary tract infection although patient has no urinary symptoms to report at this time indicating asymptomatic bacteriuria. Patient updated on the plan and agreement. All questions answered to satisfaction. Please see residents note for additional details and management. Dr. Maulik MD
--- NOTE | 2025-04-02 19:15 | PC.NURSE ---
Fitter Type Bar And Segment assumes care of patient at this time, pt in currently in MRI,
--- NOTE | 2025-04-02 20:05 | PC.NURSE ---
Patient returned from MRI, with c/o back pain 1/10 level at this time, Pt is A/O x 3 with noted full ROM and noted steady gait with transfer from wheelchair to [facility]. No acute breathing distress noted
--- NOTE | 2025-04-02 20:55 | PC.NURSE ---
Report called to floor nurse, CRISTINA Sahu
[2025-04-03] VITALS (9 sets, daily range): BP systolic 115–148; BP diastolic 64–88; PULSE 75–100; RESP 16–98; TEMP 36.1–36.9; O2SAT 92–95
[2025-04-03] MEDS: HYDROcodone/APAP 5/325 TABLET 1 TAB PO ×2 (05:58→20:11)
[2025-04-03] MEDS: PIPER/TAZO 3.375 GM PREMIX 3.375 GM/50 ML BAG IV ×2 (05:59→14:10)
[2025-04-03 06:19] LABS: Basophils # (Auto) 0.1 Thou/mm3 (0.0-0.2); Basophils % (Auto) 1 % (0-2.5); Eosinophils # (Auto) 0.3 Thou/mm3 (0.0-0.5); Eosinophils % (Auto) 4 % (0-10); Hematocrit 37.8 % (36.0-46.0); Hemoglobin 11.9 g/dL (12.0-16.0); Immature Granulocytes Auto 0.06 Thou/mm3 (0.00-0.00); Lymphocytes # (Auto) 2.0 Thou/mm3 (1.0-4.8); Lymphocytes % (Auto) 27 % (10-50); Mean Corpuscular HGB Conc 31.5 g/dl (31.0-37.0); Mean Corpuscular Hemoglobin 24.3 pg (25.0-35.0); Mean Corpuscular Volume 77 fL (80-100); Monocytes # (Auto) 0.8 Thou/mm3 (0.0-0.8); Monocytes % (Auto) 11 % (0-12); Neutrophils # (Auto) 4.2 Thou/mm3 (1.8-7.7); Neutrophils % (Auto) 57 % (37-80); Nucleated Red Blood Cell # 0.00 Thou/mm3 (0.00-0.00); Nucleated Red Blood Cell % 0 /100 WBC (0); Platelet Count 289 Thou/mm3 (140-440); RDW Standard Deviation 48.4 fL (36.4-46.3); Red Blood Count 4.90 Miln/mm3 (4.00-5.20); White Blood Count 7.4 Thou/mm3 (3.6-11.0)
[2025-04-03 06:40] LABS: Alanine Aminotransferase 59 U/L (10-49); Albumin, Serum 3.7 gm/dL (3.4-4.8); Albumin/Globulin Ratio 1.7 (1.2-2.2); Alkaline Phosphatase 132 U/L (46-116); Anion Gap 9 (7-16); Aspartate Amino Transferase 88 U/L (0-34); BUN/Creatinine Ratio 14 Ratio (12-20); Bilirubin,Total 1.0 mg/dL (0.3-1.2); Blood Urea Nitrogen 15 mg/dL (9-23); Calcium 8.9 mg/dL (8.3-10.6); Calcium (Corrected) 9.1 mg/dL (8.5-10.1); Carbon Dioxide 29.3 mMol/L (20.0-31.0); Cardiac Risk Estimate 3.0 RATIO (3.7-5.6); Chloride 104 mMol/L (98-107); Cholesterol 161 mg/dL (132-200); Creatinine (Component) 1.1 mg/dL (0.6-1.3); Estimated Creatinine Clearance 44.2 mL/min (>60); Globulin 2.2 gm/dL (2.3-3.5); Glucose 120 mg/dL (74-106); HDL Cholesterol 53 mg/dL (40-60); LDL Cholesterol,Calculated 81 mg/dL (0-130); Magnesium 1.8 mg/dL (1.6-2.6); Osmolality,Calculated 284 (275-295); Phosphorous 3.9 mg/dL (2.4-5.1); Potassium 4.5 mMol/L (3.4-5.1); Sodium 142 mMol/L (136-145); Total Protein 5.9 gm/dL (5.7-8.2); Triglycerides 134 mg/dL (30-150); eGFR 53 See Note
[2025-04-03] MEDS: MORPHINE SULF INJ 10 MG/ML VIAL 2 MG IVP ×3 (06:46→19:20)
--- NOTE | 2025-04-03 09:25 | PD.RESPRO ---
Documentation for date of: 04/03/25 Senior resident attestation: Patient evaluated and examined at the bedside, plan of care discussed with rest of the team including my attending physician, except as noted. Patient is a 74-year-old female with a past medical history of Crohn's disease, who presented to the ER complaining of lower back pain, which made it difficult to even turn in bed. Imaging was ordered in the ER, CT was concerning for osteomyelitis discitis L5-S1 level, also found soft aortic foci sacral long segment, concern for osteoblastic metastatic disease. MRI was ordered which showed no findings diagnostic of osteomyelitis but mild discitis L5-S1 L2-L3 level. Patient was started on IV vancomycin and Zosyn, consulted ID specialist Dr Cleaning. Currently requiring IV antibiotics and pain, pending blood cultures. Quresh PGY3 Subjective Subjective Interval history: No Overnight events. Labs reviewed and patient examined at the bedside. Lumbar MRI w/ and w/o contrast revealed No findings diagnostic for osteomyelitis and Mild discitis at the L5-S1, L2-L3 level. Currently following Infectious Disease specialist, Dr. Cleaning for future plans. Patient only has mild pain at lower back. Has given morphine 4mg IV x1 and [place] 5/325 PO q4hr prn. Denies any heart palpitation, chest pain, Shortness of breath, fever, or chills. Exam Vital Signs Temp Pulse Resp BP Pulse Ox O2 Del Method 97.2 F 100 18 148/88 H 92 L Nasal Cannula 04/03/25 08:00 04/03/25 08:00 04/03/25 08:00 04/03/25 08:00 04/03/25 08:00 04/03/25 08:00 Narrative Exam General: No acute distress, well nourished Eye: PERRL, EOMI, normal conjunctiva, no scleral icterus HENT: Normocephalic, atraumatic, hearing intact to conversation at normal volume, moist oral mucosa Neck: Supple, non-tender, no JVD, no lymphadenopathy Lungs: Non-labored respirations, symmetric chest rise, Clear to auscultate bilaterally Heart: Peripheral pulses intact bilaterally Abdomen: Soft, non-tender, non-distended Musculoskeletal: Normal range of motion and strength. Mild Pain in lower back Skin: Skin is warm, dry, no rashes or lesions. Psychiatric: Cooperative, appropriate mood and affect Neuro: Cranial nerves II-XII grossly intact. Strength 5/5 throughout. Sensations intact to light touch. Objective Labs 04/04/25 05:23 04/04/25 05:23 Labs: Laboratory Results - last 24 hr 04/02/25 04/02/25 04/03/25 12:07 12:56 05:40 WBC 10.6 7.4 RBC 5.55 H 4.90 Hgb 13.5 11.9 L Hct 41.2 37.8 MCV 74 L 77 L MCH 24.3 L 24.3 L MCHC 32.8 31.5 RDW Std Deviation 46.5 H 48.4 H Plt Count 279 289 Neut % (Auto) 66 57 Lymph % (Auto) 24 27 [place] % (Auto) 8 11 Eos % (Auto) 1 4 Baso % (Auto) 1 1 Neut # (Auto) 7.0 4.2 Lymph # (Auto) 2.6 2.0 [place] # (Auto) 0.8 0.8 Eos # (Auto) 0.1 0.3 Baso # (Auto) 0.1 0.1 Immature Gran # (Auto) 0.09 H 0.06 H Absolute Nucleated RBC 0.00 0.00 Immature Gran % 1 H 1 H Nucleated RBC % 0 0 ESR 34 H PT 10.4 INR 0.9 Sodium 138 142 Potassium 4.3 4.5 Chloride 103 104 Carbon Dioxide 25.0 29.3 Anion Gap 10 9 BUN 10 15 Creatinine 0.9 1.1 Estim Creat Clear Calc 51.5 L 44.2 L eGFR > 60 53 L BUN/Creatinine Ratio 11 L 14 Glucose 112 H 120 H Calculated Osmolality 275 284 Lactic Acid 1.4 Calcium 9.3 8.9 Corrected Calcium 9.3 9.1 Phosphorus 3.9 Magnesium 1.8 Total Bilirubin 1.0 1.0 AST 33 88 H ALT 24 59 H Alkaline Phosphatase 123 H 132 H C-Reactive Prot, Quant 1.6 H Total Protein 7.1 5.9 Albumin 4.4 3.7 D Globulin 2.7 2.2 L Albumin/Globulin Ratio 1.6 1.7 Triglycerides 134 Cholesterol 161 LDL Cholesterol, Calc 81 HDL Cholesterol 53 Cholesterol/HDL Ratio 3.0 L Procalcitonin 0.06 Ur Collection Type Clean Catch Urine Color Yellow Urine Clarity Turbid A Urine pH 6.0 Ur Specific [place] 1.023 Urine Protein Negative Urine Glucose (UA) Negative Urine Ketones Negative Urine Blood Negative Urine Nitrite Negative Urine Bilirubin Negative Urine Urobilinogen (Auto) Negative Ur Leukocyte Esterase Positive Urine RBC 9 H Urine WBC 21 H Ur Squamous Epith Cells 7 H Urine Bacteria Rare Hyaline Casts < 1 Ur Culture Indicated? Yes Quality Measures Quality Measures none Advance care planning discussed with:: patient Assessment & Plan Assessment Current Active Medications: Generic Name Dose Route Start Last Admin Trade Name Freq PRN Reason Stop Dose Admin Acetaminophen 650 mg 04/02/25 14:13 Acetaminophen 325 Mg Tablet PO 05/02/25 14:12 Q6H PRN Mild Pain 1-3 or Fever 100.3 Hydrocodone Bitart/Acetaminophen 1 tab 04/02/25 14:13 04/03/25 05:58 Hydrocodone/Apap 5/325 Tablet PO 04/07/25 14:12 1 tab Q4HR PRN Administration PAIN SCALE 4-6 (Moderate Famotidine 20 mg 04/02/25 14:30 04/02/25 22:17 Famotidine 20 Mg Tablet PO 05/02/25 14:29 20 mg BID OSIEL Administration Hydralazine HCl 10 mg 04/02/25 18:08 Hydralazine Inj 20 Mg/Ml Vial IVP 05/02/25 18:07 Q6HR PRN Hypertension Piperacillin/Tazobactam/Dextrose 3.375 gm in 50 mls @ 12.5 mls/hr 04/02/25 22:00 04/03/25 05:59 Zosyn IV 04/09/25 21:59 12.5 mls/hr Q8HR OSIEL Administration Protocol Vancomycin HCl 250 mls @ 120 mls/hr 04/03/25 10:00 Vancomycin/Water 1250 Mg Ivpb IV 04/10/25 09:59 QDAY@1000 OSIEL Morphine Sulfate 2 mg 04/02/25 14:13 04/03/25 06:46 Morphine Sulf Inj 10 Mg/Ml Vial IVP 04/07/25 14:12 2 mg Q4HR PRN Administration PAIN SCALE 7-10 (Severe Ondansetron HCl 4 mg 04/02/25 14:13 Ondansetron Inj 2 Mg/Ml Inj 2 Ml IVP 05/02/25 14:12 Q6H PRN NAUSEA OR VOMITING Protocol Pharmacy Consult 1 each 04/03/25 09:00 Vancomycin Pharmacy To Dose 1 Each Each IV 05/03/25 08:59 QDAY PRN CONSULT Sennosides 1 tab 04/02/25 14:30 04/02/25 15:05 Senna Tablet PO 05/02/25 14:29 1 tab QDAY OSIEL Administration Protocol Plan 74 year old female with PMH of Lichen sclerosus, Crohn's disease, osteopenia, presented to the ED on 04/02/2020 with lower back pain started roughly 1 month ago and worsened 5 days ago after trying to lift an object. Patient will be admitted for management of her discitis and possible osteoblastic metastatic disease. #Discitis L5-S1, L2-L3 -Temp: 97.2F, WBC:10.6, ESR:34 and CRP:1.6, Minimally elevated ESR and CRP on admission. -Lumbar spine CT (04/02/2025): Findings suspicious for osteomyelitis discitis L5-S1 level, Sclerotic foci right first sacral segment and L1 vertebral body, consider osteoblastic metastatic disease. Plan: -F/u on Blood Culture and Urine culture. Blood culture no growth for 24hrs. -ECHO: No clear vegetation noted but TTE suboptimal to rule out any endocarditis.Normal LV size Estimated EF 65-70%. Grade I diastolic dysfunction. -MRI lumbar w/ and w/o contrast: No findings diagnostic for osteomyelitis, Mild discitis at the L5-S1, L2-L3 level -After MRI, consider bone biopsy -Continue IV Vancomycin and IV Zoysn 3.375g -Currently following Infectious Disease specialist, Dr. Cleaning for future plans. #?Osteoblastic metastatic disease -Lumbar spine CT (04/02/2025): consider osteoblastic metastatic disease. -Referral to Outpatient whole body bone scan. #Crohn's disease -Mesalamine listed as home medication but patient was only taking prednisone as a flare-up -Currently has Dr. Anders as a GI specialist Disposition: Admitted for possible osteomyelitis. Pending Blood culture and MRI lumbar w/ and w/o Diet: Regular GI prophylaxis: Famotidine DVT prophylaxis: SCD Code: FULL Assessment and plan discussed with my attending physician Dr. Willingham and Dr. Mar (PGY-3) Dr. Martell (PGY-1)- Internal medicine resident Attending Provider Attestation/Addendum I have examined the patient, reviewed labs and imaging findings, discussed the case with the resident(s), and reviewed entered orders. I agree with the plan of care as outlined in this note, with these additional summaries/recommendations: Patient is a 74-year-old female with a medical history of Crohn's disease on as needed prednisone, lichen sclerosis, osteopenia, and chronic lower back pain presents to [facility] emergency department on 04/02/2025 with chief complaint of intractable back pain and failed outpatient pain management. Patient seen at bedside. No acute overnight events. She reports improvement in back pain after starting pain regimen. On admission Lumbar spine revealed suspicion for osteomyelitis/discitis at L5-S1 level. ESR 34 and CRP 1.6. Patient does take intermittent prednisone although no clear source for osteomyelitis of the spine. MRI lumbar spine was obtained which revealed no findings diagnostic of osteomyelitis but did reveal discitis at L5-S1 level suspicious for osteo. Continue IV antibiotics and consult in-house infectious disease. F/U cx results. Continue pain management and we will discuss with patient about bone biopsy. Lumbar spine CT also revealed sclerotic foci in first sacral segment and L1 vertebral body suspicious for osteoblastic metastatic disease and no evidence on MRI. Patient's Crohn's disease appears stable and we will defer prednisone for now. Patient updated on the plan and agreement. All questions answered to satisfaction. Please see residents note for additional details and management. Dr. Maulik MD
[2025-04-03] MEDS: VANCOMYCIN/WATER 1250 MG IVPB 250 ML 120 MG IV (10:00)
[2025-04-03] MEDS: FAMOTIDINE 20 MG TABLET PO (10:00)
--- NOTE | 2025-04-03 10:17 | PC.SS ---
Initial assessment: Patient is a 74-year old female admitted for osteomyelitis. Patient was able to confirm her demographic information. Patient informs she lives alone, but half of the week her life partner Anatoly Brothers stays with her. Patient assigned her daughter, Sherri Llamas as her emergency contact. Patient informs she is independent with ADL's. Patient denies use of DME in the home. Patient states her PCP is Mercedes Mathis. Patient preferred pharmacy is [facility] in [place]. Patient is aware that she may require IV antibiotics and would like to return home with home health services for IV antibiotics if able to. No preferred agency identified. Patient is still pending Dr. Cleaning recommendations. D/c plan: Home w/home health Next of kin: daughterSherri
--- NOTE | 2025-04-03 14:54 | PD.IDPROG ---
Subjective Subjective Interval history: 74 y/o with hx of crohn's noted. rash to sulfa noted. lack of a bacteriologic dx noted. esr 34, crp 1.6 unimpressive but sx more impressive Exam Vital Signs Temp Pulse Resp BP Pulse Ox O2 Del Method 97.4 F 86 18 115/68 94 L Room Air 04/03/25 12:00 04/03/25 12:00 04/03/25 12:00 04/03/25 12:00 04/03/25 12:00 04/03/25 12:00 Narrative Exam doing ok. cx neg so far. Objective - Internal Medicine Labs 04/03/25 05:40 04/03/25 05:40 Labs: Laboratory Results - last 24 hr 04/03/25 05:40 WBC 7.4 RBC 4.90 Hgb 11.9 L Hct 37.8 MCV 77 L MCH 24.3 L MCHC 31.5 RDW Std Deviation 48.4 H Plt Count 289 Neut % (Auto) 57 Lymph % (Auto) 27 [place] % (Auto) 11 Eos % (Auto) 4 Baso % (Auto) 1 Neut # (Auto) 4.2 Lymph # (Auto) 2.0 [place] # (Auto) 0.8 Eos # (Auto) 0.3 Baso # (Auto) 0.1 Immature Gran # (Auto) 0.06 H Absolute Nucleated RBC 0.00 Immature Gran % 1 H Nucleated RBC % 0 Sodium 142 Potassium 4.5 Chloride 104 Carbon Dioxide 29.3 Anion Gap 9 BUN 15 Creatinine 1.1 Estim Creat Clear Calc 44.2 L eGFR 53 L BUN/Creatinine Ratio 14 Glucose 120 H Calculated Osmolality 284 Calcium 8.9 Corrected Calcium 9.1 Phosphorus 3.9 Magnesium 1.8 Total Bilirubin 1.0 AST 88 H ALT 59 H Alkaline Phosphatase 132 H Total Protein 5.9 Albumin 3.7 D Globulin 2.2 L Albumin/Globulin Ratio 1.7 Triglycerides 134 Cholesterol 161 LDL Cholesterol, Calc 81 HDL Cholesterol 53 Cholesterol/HDL Ratio 3.0 L Assessment & Plan A&P Narrative hx of crohn's disease. with low esr and crp mild discitis in lumbar spine with low esr and crp usually if bc are neg then we need an aspiration of the affected area to make a dx. I ordered some tests for am. cocci, qtf, esr and crp but did not order a bx but that would normally be my favored test here if bc with a likely pathogen, we can target that for rx if not, then we need that bx or you can arrange rocephin 2 gm iv daily for 8 weeks from admit and po doxy 100 bid for same duration. weekly cbc, renal panel, esr advised if treatment given if you just treat her and do not make a dx, then f/u will be with you as I simply can not see her in f/u on a timely basis. if you give her iv rx. then you also need to figure out how to do it. if bc pos for gpc, the germ may be a pathogen or may be a contaminant, we may not know till tuesday or tuesday. Time Spent With Patient Time: Total time spent is greater than 50% in coordination of care (as documented) at patient's floor/unit and/or counseling patient:
--- NOTE | 2025-04-03 17:08 | PC.SS ---
Rounding note: patient is pending Dr. Cleaning recommendations if IV abx will be needed.
--- NOTE | 2025-04-03 17:14 | PD.ADDPROG ---
Addendum Progress Note Addendum Date of report being addended: 04/03/25 Narrative: crp only 1.6 so very low. keep that in mind when arranging f/u rx for her
[2025-04-03] MEDS: cefTRIAXone 2 GM in SODIUM CHLORIDE 0.9% (Popper) 50 ML IV (17:59)
--- NOTE | 2025-04-03 20:05 | ESCONSULT_ITS ---
RE: PATSY BRADEN : 1950 DATE OF CONSULTATION: 04/03/2025 DATE OF CONSULTATION: 04/03/2025 REFERRING PHYSICIAN: Dr. Willingham. REASON FOR CONSULTATION: Lumbar diskitis. HISTORY OF PRESENT ILLNESS: The patient is admitted because of back pain. She had trouble getting up for a couple of weeks, but imaging showed only some mild diskitis on the lumbar spine. No biopsy was done. Blood cultures were attempted and she was never febrile. PAST MEDICAL HISTORY: She has history of ALLERGIES TO SULFA, WHICH CAUSES A RASH and some Crohn's disease for which she is not treated by Dr. Anders because she just toughs it out. Her history of medical problems other than Crohn's disease are absent. She is G1 para 1 with 1 termination and 1 tubal . She had 1 daughter by . PAST SURGICAL HISTORY: Her surgical history includes x1, cholecystectomy in 2002, right total knee arthroplasty in 2022, and rotator cuff repair subsequent to that on the right. All problems seem to be on the right. ALLERGIES: TO SULFA. IMMUNIZATIONS: Last tetanus was 7 years ago. She does take flu shot every year and has had 2 to 3 COVID vaccines and has had pneumococcal as well as shingles vaccine. FAMILY HISTORY: Unremarkable. SOCIAL HISTORY: She lives with her and lives independently. Her is gone most of the week and her daughter lives here in [place]. She lives in [place]. She is a nonsmoker. There are no travel or exposures. Her parents had valley fever, but she has not to her knowledge. She is not known anyone with TB. ASSESSMENT: Lumbar diskitis by imaging with a sed rate that is 34 and CRP is 14. These are not very striking numbers, but are abnormal. RECOMMENDATIONS: I am going to have her repeat those and see if they are more significant or worsening. If they are, then a biopsy is necessary. If not, we may be able to stop her antibiotics or just give her oral doxycycline. I will check on her again on Tuesday morning if she remains. If she goes home in the meantime, I have no objection, but we have to follow her, I cannot see her in clinic. Normally, in this situation, we get a biopsy and we use Rocephin 2 grams a day and once a day IV and oral doxycycline 100 mg p.o. b.i.d. Doxycycline will cover for many MRSAs as well as Rocephin will cover for the gram-negatives and most Staph aureus. There is also some enterococcal coverage in there with doxycycline being somewhat effecive for Enterococcus and overall you are losing just a little bit of Pseudomonas, which is an unlikely player at this setting and some of the enterococcal coverage of Zosyn. If we knew if it was Enterococcus, we would probably not use Rocephin or doxycycline alone. I am going to switch her off of vancomycin and Zosyn though and give her doxycycline and Rocephin and treatment will be through 05/27 if treated. I will see her again on Tuesday if she remains, but if she goes home in the meantime, that is your decision. DT: 17:11:35 TT: 17:43:00 Ref: [id number] - TID: [id number] [facility]
[2025-04-03] MEDS: DOXYCYCLINE 100 MG TABLET PO (21:19)
[2025-04-04] VITALS (8 sets, daily range): BP systolic 110–173; BP diastolic 53–78; PULSE 75–100; RESP 13–97; TEMP 36.1–36.8; O2SAT 93–98; BMI 29.3
[2025-04-04] MEDS: MORPHINE SULF INJ 10 MG/ML VIAL 2 MG IVP ×3 (05:29→19:20)
[2025-04-04] MEDS: POLYETHYLENE GLYCOL 17 GM PACKET PO (05:54)
[2025-04-04] MEDS: MORPHINE SULF INJ 10 MG/ML VIAL IVP (06:11)
[2025-04-04 06:23] LABS: Quantiferon-TB* See Sep Rpt
[2025-04-04 06:34] LABS: Basophils # (Auto) 0.0 Thou/mm3 (0.0-0.2); Basophils % (Auto) 1 % (0-2.5); Eosinophils # (Auto) 0.3 Thou/mm3 (0.0-0.5); Eosinophils % (Auto) 3 % (0-10); Hematocrit 38.3 % (36.0-46.0); Hemoglobin 12.4 g/dL (12.0-16.0); Immature Granulocytes Auto 0.04 Thou/mm3 (0.00-0.00); Lymphocytes # (Auto) 2.6 Thou/mm3 (1.0-4.8); Lymphocytes % (Auto) 34 % (10-50); Mean Corpuscular HGB Conc 32.4 g/dl (31.0-37.0); Mean Corpuscular Hemoglobin 24.9 pg (25.0-35.0); Mean Corpuscular Volume 77 fL (80-100); Monocytes # (Auto) 0.9 Thou/mm3 (0.0-0.8); Monocytes % (Auto) 12 % (0-12); Neutrophils # (Auto) 3.7 Thou/mm3 (1.8-7.7); Neutrophils % (Auto) 50 % (37-80); Nucleated Red Blood Cell # 0.00 Thou/mm3 (0.00-0.00); Nucleated Red Blood Cell % 0 /100 WBC (0); Platelet Count 305 Thou/mm3 (140-440); RDW Standard Deviation 47.8 fL (36.4-46.3); Red Blood Count 4.97 Miln/mm3 (4.00-5.20); White Blood Count 7.5 Thou/mm3 (3.6-11.0)
[2025-04-04 06:51] LABS: Alanine Aminotransferase 99 U/L (10-49); Albumin, Serum 3.8 gm/dL (3.4-4.8); Albumin/Globulin Ratio 1.6 (1.2-2.2); Alkaline Phosphatase 161 U/L (46-116); Anion Gap 10 (7-16); Aspartate Amino Transferase 95 U/L (0-34); BUN/Creatinine Ratio 14 Ratio (12-20); Bilirubin,Total 0.4 mg/dL (0.3-1.2); Blood Urea Nitrogen 13 mg/dL (9-23); Calcium 9.2 mg/dL (8.3-10.6); Calcium (Corrected) 9.4 mg/dL (8.5-10.1); Carbon Dioxide 28.7 mMol/L (20.0-31.0); Chloride 104 mMol/L (98-107); Creatine Kinase 30 U/L (34-171); Creatinine (Component) 0.9 mg/dL (0.6-1.3); Estimated Creatinine Clearance 54.0 mL/min (>60); Globulin 2.4 gm/dL (2.3-3.5); Glucose 111 mg/dL (74-106); Magnesium 1.8 mg/dL (1.6-2.6); Osmolality,Calculated 286 (275-295); Phosphorous 2.8 mg/dL (2.4-5.1); Potassium 3.8 mMol/L (3.4-5.1); Sodium 143 mMol/L (136-145); Total Protein 6.2 gm/dL (5.7-8.2); eGFR > 60 See Note
[2025-04-04 07:51] LABS: Hepatitis C Antibody Non Reactive (Non React)
[2025-04-04] MEDS: FAMOTIDINE 20 MG TABLET PO (08:42)
[2025-04-04] MEDS: DOXYCYCLINE 100 MG TABLET PO ×2 (08:42→20:41)
[2025-04-04] MEDS: HYDROcodone/APAP 5/325 TABLET 1 TAB PO ×3 (08:42→22:17)
[2025-04-04] MEDS: cefTRIAXone 2 GM in SODIUM CHLORIDE 0.9% (Popper) 50 ML IV (08:42)
[2025-04-04 13:01] LABS: Cocci Serology, IgM Negative (Negative)
--- NOTE | 2025-04-04 15:06 | PD.RESPRO ---
Documentation for date of: 04/04/25 Senior resident attestation: Patient evaluated and examined at the bedside, plan of care discussed with rest of the team including my attending physician, except as noted. CT and MRI findings concerning for discitis L5-S1/osteomyelitis. Infectious especially Dr Cleaning was consulted, blood cultures negative to date, will need tissue biopsy to determine use of long-term antibiotics for osteomyelitis/discitis. The case was discussed in detail with the patient, agreed with proceeding with CT-guided biopsy, pending final results for bone biopsy. Continued on IV antibiotics ceftriaxone and p.o. doxycycline. Multimodal analgesia added. Quresh PGY3 Subjective Subjective Interval history: No Overnight events. Labs reviewed and patient examined at the bedside. Patient decided to do bone biopsy for her discitis. No growth for 48hrs in Blood Culture. Currently on Rocephin 2g IV qd and Doxycycline 100mg PO bid. Patient still complains back pain. Patient denies any chest pain, palpitations, Shortness of breath, fevers or chills. Exam Vital Signs Temp Pulse Resp BP Pulse Ox O2 Del Method 97.5 F 79 18 127/73 95 Room Air 04/04/25 12:00 04/04/25 12:00 04/04/25 12:00 04/04/25 12:00 04/04/25 12:00 04/04/25 12:00 Narrative Exam General: No acute distress, well nourished Eye: PERRL, EOMI, normal conjunctiva, no scleral icterus HENT: Normocephalic, atraumatic, hearing intact to conversation at normal volume, moist oral mucosa Neck: Supple, non-tender, no JVD, no lymphadenopathy Lungs: Non-labored respirations, symmetric chest rise, Clear to auscultate bilaterally Heart: Peripheral pulses intact bilaterally Abdomen: Soft, non-tender, non-distended Musculoskeletal: Normal range of motion and strength. Mild Pain in lower back Skin: Skin is warm, dry, no rashes or lesions. Psychiatric: Cooperative, appropriate mood and affect Neuro: Cranial nerves II-XII grossly intact. Strength 5/5 throughout. Sensations intact to light touch. Objective Labs 04/05/25 04:50 04/05/25 04:50 Labs: Laboratory Results - last 24 hr 04/04/25 05:23 WBC 7.5 RBC 4.97 Hgb 12.4 Hct 38.3 MCV 77 L MCH 24.9 L MCHC 32.4 RDW Std Deviation 47.8 H Plt Count 305 Neut % (Auto) 50 Lymph % (Auto) 34 [place] % (Auto) 12 Eos % (Auto) 3 Baso % (Auto) 1 Neut # (Auto) 3.7 Lymph # (Auto) 2.6 [place] # (Auto) 0.9 H Eos # (Auto) 0.3 Baso # (Auto) 0.0 Immature Gran # (Auto) 0.04 H Absolute Nucleated RBC 0.00 Immature Gran % 1 H Nucleated RBC % 0 Sodium 143 Potassium 3.8 D Chloride 104 Carbon Dioxide 28.7 Anion Gap 10 BUN 13 Creatinine 0.9 Estim Creat Clear Calc 54.0 L eGFR > 60 BUN/Creatinine Ratio 14 Glucose 111 H Calculated Osmolality 286 Calcium 9.2 Corrected Calcium 9.4 Phosphorus 2.8 Magnesium 1.8 Total Bilirubin 0.4 D AST 95 H ALT 99 H Alkaline Phosphatase 161 H D Total Creatine Kinase 30 L Total Protein 6.2 Albumin 3.8 Globulin 2.4 Albumin/Globulin Ratio 1.6 Coccidioides IgM Ab Negative Hepatitis C Antibody Non Reactive Quality Measures Quality Measures none Advance care planning discussed with:: patient Assessment & Plan Assessment Current Active Medications: Generic Name Dose Route Start Last Admin Trade Name Freq PRN Reason Stop Dose Admin Acetaminophen 650 mg 04/02/25 14:13 Acetaminophen 325 Mg Tablet PO 05/02/25 14:12 Q6H PRN Mild Pain 1-3 or Fever 100.3 Hydrocodone Bitart/Acetaminophen 1 tab 04/02/25 14:13 04/04/25 08:42 Hydrocodone/Apap 5/325 Tablet PO 04/07/25 14:12 1 tab Q4HR PRN Administration PAIN SCALE 4-6 (Moderate Doxycycline Hyclate 100 mg 04/03/25 21:00 04/04/25 08:42 Doxycycline 100 Mg Tablet PO 05/27/25 12:00 100 mg BID OSIEL Administration Famotidine 20 mg 04/04/25 09:00 04/04/25 08:42 Famotidine 20 Mg Tablet PO 05/02/25 14:29 20 mg DAILY OSIEL Administration Hydralazine HCl 10 mg 04/02/25 18:08 Hydralazine Inj 20 Mg/Ml Vial IVP 05/02/25 18:07 Q6HR PRN Hypertension Ceftriaxone Sodium 2 gm/ 50 mls @ 100 mls/hr 04/03/25 17:03 04/04/25 08:42 Sodium Chloride IV 05/27/25 12:00 100 mls/hr QDAY OSIEL Administration Morphine Sulfate 2 mg 04/02/25 14:13 04/04/25 14:05 Morphine Sulf Inj 10 Mg/Ml Vial IVP 04/07/25 14:12 2 mg Q4HR PRN Administration PAIN SCALE 7-10 (Severe Ondansetron HCl 4 mg 04/02/25 14:13 Ondansetron Inj 2 Mg/Ml Inj 2 Ml IVP 05/02/25 14:12 Q6H PRN NAUSEA OR VOMITING Protocol Sennosides 1 tab 04/02/25 14:30 04/04/25 08:42 Senna Tablet PO 05/02/25 14:29 1 tab QDAY OSIEL Administration Protocol Plan 74 year old female with PMH of Lichen sclerosus, Crohn's disease, osteopenia, presented to the ED on 04/02/2020 with lower back pain started roughly 1 month ago and worsened 5 days ago after trying to lift an object. Patient will be admitted for management of her discitis and possible osteoblastic metastatic disease. #Discitis L5-S1, L2-L3 -Temp: 97.2F, WBC:10.6, ESR:34 and CRP:1.6, Minimally elevated ESR and CRP on admission. -Lumbar spine CT (04/02/2025): Findings suspicious for osteomyelitis discitis L5-S1 level, Sclerotic foci right first sacral segment and L1 vertebral body, consider osteoblastic metastatic disease. Plan: -Blood culture no growth for 48hrs. -ECHO: No clear vegetation noted but TTE suboptimal to rule out any endocarditis.Normal LV size Estimated EF 65-70%. Grade I diastolic dysfunction. -MRI lumbar w/ and w/o contrast: No findings diagnostic for osteomyelitis, Mild discitis at the L5-S1, L2-L3 level -After MRI, consider bone biopsy -Discontinued IV Vancomycin and IV Zoysn 3.375g. -Started on IV Rocephin 2g IV qd and Doxycycline 100mg PO bid -CT guided bone biopsy ordered. -Currently following Infectious Disease specialist, Dr. Cleaning for future plans. #?Osteoblastic metastatic disease -Lumbar spine CT (04/02/2025): consider osteoblastic metastatic disease. -Referral to Outpatient whole body bone scan. #Crohn's disease -Mesalamine listed as home medication but patient was only taking prednisone as a flare-up -Currently has Dr. Anders as a GI specialist Disposition: Admitted for possible osteomyelitis. Pending Blood culture and MRI lumbar w/ and w/o Diet: Regular GI prophylaxis: Famotidine DVT prophylaxis: SCD Code: FULL Assessment and plan discussed with my attending physician Dr. Willingham and Dr. Mar (PGY-3) Dr. Martell (PGY-1)- Internal medicine resident Attending Provider Attestation/Addendum I have examined the patient, reviewed labs and imaging findings, discussed the case with the resident(s), and reviewed entered orders. I agree with the plan of care as outlined in this note, with these additional summaries/recommendations: Patient is a 74-year-old female with a medical history of Crohn's disease on as needed prednisone, lichen sclerosis, osteopenia, and chronic lower back pain presents to [facility] emergency department on 04/02/2025 with chief complaint of intractable back pain and failed outpatient pain management. Patient seen at bedside. No acute overnight events. She does report some improvement in back pain although overall still moderate to severe in intensity. She now endorses scatted cath today although sensation intact and patient able to ambulate. She endorses constipation and start laxatives. On admission Lumbar spine revealed suspicion for osteomyelitis/discitis at L5-S1 level. ESR 34 and CRP 1.6. Patient does take intermittent prednisone although no clear source for osteomyelitis of the spine. MRI lumbar spine was obtained which revealed no findings diagnostic of osteomyelitis but did reveal discitis at L5-S1 level suspicious for osteo. Continue IV antibiotics and in-house infectious disease following. No growth on blood cultures thus far and patient in agreement to go for bone biopsy which was ordered. Continue pain management. Lumbar spine CT also revealed sclerotic foci in first sacral segment and L1 vertebral body suspicious for osteoblastic metastatic disease and no evidence on MRI. Patient's Crohn's disease appears stable and we will defer prednisone for now. Patient updated on the plan and agreement. All questions answered to satisfaction. Please see residents note for additional details and management. Dr. Maulik MD
--- NOTE | 2025-04-04 15:39 | PC.SS ---
Rounding note: patient to get a bone biopsy, ID recommendations are pending. Current d/c plan is to return home w/home health.
[2025-04-05] VITALS (11 sets, daily range): BP systolic 120–167; BP diastolic 69–96; PULSE 70–90; RESP 14–19; TEMP 36.1–36.7; O2SAT 93–100
--- NOTE | 2025-04-05 04:11 | PC.NURSE ---
Patient continues to complain of lower back pain, she stated pain medications are not helping her that much. MD notified.
[2025-04-05] MEDS: MORPHINE SULF INJ 10 MG/ML VIAL 2 MG IVP ×2 (04:21→16:49)
[2025-04-05] MEDS: HYDROcodone/APAP 5/325 TABLET 1 TAB PO ×3 (05:16→18:55)
[2025-04-05 06:16] LABS: Basophils # (Auto) 0.0 Thou/mm3 (0.0-0.2); Basophils % (Auto) 1 % (0-2.5); Eosinophils # (Auto) 0.3 Thou/mm3 (0.0-0.5); Eosinophils % (Auto) 4 % (0-10); Hematocrit 39.2 % (36.0-46.0); Hemoglobin 12.3 g/dL (12.0-16.0); Immature Granulocytes Auto 0.04 Thou/mm3 (0.00-0.00); Lymphocytes # (Auto) 3.1 Thou/mm3 (1.0-4.8); Lymphocytes % (Auto) 43 % (10-50); Mean Corpuscular HGB Conc 31.4 g/dl (31.0-37.0); Mean Corpuscular Hemoglobin 24.3 pg (25.0-35.0); Mean Corpuscular Volume 78 fL (80-100); Monocytes # (Auto) 1.0 Thou/mm3 (0.0-0.8); Monocytes % (Auto) 13 % (0-12); Neutrophils # (Auto) 2.9 Thou/mm3 (1.8-7.7); Neutrophils % (Auto) 39 % (37-80); Nucleated Red Blood Cell # 0.00 Thou/mm3 (0.00-0.00); Nucleated Red Blood Cell % 0 /100 WBC (0); Platelet Count 317 Thou/mm3 (140-440); RDW Standard Deviation 47.5 fL (36.4-46.3); Red Blood Count 5.06 Miln/mm3 (4.00-5.20); White Blood Count 7.3 Thou/mm3 (3.6-11.0)
[2025-04-05 06:38] LABS: INR 1.0 (0.9-1.3); Partial Thromboplastin Time 25.7 Seconds (22.0-36.0); Prothrombin Time 10.9 Seconds (9.0-12.2)
[2025-04-05 07:10] LABS: Alanine Aminotransferase 109 U/L (10-49); Albumin, Serum 3.9 gm/dL (3.4-4.8); Albumin/Globulin Ratio 1.7 (1.2-2.2); Alkaline Phosphatase 184 U/L (46-116); Anion Gap 10 (7-16); Aspartate Amino Transferase 75 U/L (0-34); BUN/Creatinine Ratio 14 Ratio (12-20); Bilirubin,Total 0.6 mg/dL (0.3-1.2); Blood Urea Nitrogen 11 mg/dL (9-23); Calcium 9.3 mg/dL (8.3-10.6); Calcium (Corrected) 9.4 mg/dL (8.5-10.1); Carbon Dioxide 28.2 mMol/L (20.0-31.0); Chloride 104 mMol/L (98-107); Creatinine (Component) 0.8 mg/dL (0.6-1.3); Estimated Creatinine Clearance 59.4 mL/min (>60); Globulin 2.3 gm/dL (2.3-3.5); Glucose 99 mg/dL (74-106); Magnesium 1.6 mg/dL (1.6-2.6); Osmolality,Calculated 282 (275-295); Phosphorous 3.0 mg/dL (2.4-5.1); Potassium 3.9 mMol/L (3.4-5.1); Sodium 142 mMol/L (136-145); Total Protein 6.2 gm/dL (5.7-8.2); eGFR > 60 See Note
--- NOTE | 2025-04-05 09:00 | XR_ITS ---
Examination: CT-guided percutaneous biopsy aspiration L5-S1 disc CT lumbar spine without intravenous contrast Date and time of procedure: April 05, 2025 1009 hours INDICATIONS: MRI lumbar spine April 02, 2025 discitis L5-S1 level Informed consent provided. A timeout was completed verifying correct patient, procedure, site and positioning. . Technique: Axial 3 mm sections were obtained for localization of the L5-S1 disc Appropriate area is marked. The patient's site was prepped and draped in sterile fashion Maximal sterile barrier technique utilized, including hand hygiene Local anesthesia was obtained with 1% lidocaine. Low dose protocols were performed. One or more of the following dose reduction techniques were used; automated exposure control, adjustment of the mA and/or KV according to patient size, use of iterative reconstruction technique. Utilizing CT fluoroscopic guidance successful biopsy aspiration at the level of the L5-S1 disc Patient appears in stable condition during this procedure. At completion of the procedure, the patient is in satisfactory condition. Estimated blood loss 0 cc Complete culture and sensitivity report to follow. Impression: Successful CT-guided percutaneous biopsy/aspiration L5-S1 disc
[2025-04-05] MEDS: cefTRIAXone 2 GM in SODIUM CHLORIDE 0.9% (Popper) 50 ML IV (09:23)
[2025-04-05] MEDS: Magnesium Sulfate 2 GM Ivpb 2 GM/50 ML BAG IV (09:41)
--- NOTE | 2025-04-05 10:26 | PD.ADDPROG ---
Addendum Progress Note Addendum Date of report being addended: 04/03/25 Narrative: PE: benign. limited mobility noted.
--- NOTE | 2025-04-05 10:28 | ESPR_ITS ---
Subjective Subjective Interval history: no crp. was low before. repeat ordered, if neg then po rx ok Exam Vital Signs Temp Pulse Resp BP Pulse Ox O2 Del Method 97 F 70 18 159/76 H 97 Room Air 04/05/25 08:00 04/05/25 10:02 04/05/25 10:02 04/05/25 10:02 04/05/25 10:02 04/05/25 10:02 Narrative Exam just back from bx. so no result available. no crp yesterday Objective - Internal Medicine Labs 04/05/25 04:50 04/05/25 04:50 Labs: Laboratory Results - last 24 hr 04/04/25 04/05/25 05:23 04:50 WBC 7.3 RBC 5.06 Hgb 12.3 Hct 39.2 MCV 78 L MCH 24.3 L MCHC 31.4 RDW Std Deviation 47.5 H Plt Count 317 Neut % (Auto) 39 Lymph % (Auto) 43 [place] % (Auto) 13 H Eos % (Auto) 4 Baso % (Auto) 1 Neut # (Auto) 2.9 Lymph # (Auto) 3.1 [place] # (Auto) 1.0 H Eos # (Auto) 0.3 Baso # (Auto) 0.0 Immature Gran # (Auto) 0.04 H Absolute Nucleated RBC 0.00 Immature Gran % 1 H Nucleated RBC % 0 PT 10.9 INR 1.0 APTT 25.7 Sodium 142 Potassium 3.9 Chloride 104 Carbon Dioxide 28.2 Anion Gap 10 BUN 11 Creatinine 0.8 Estim Creat Clear Calc 59.4 L eGFR > 60 BUN/Creatinine Ratio 14 Glucose 99 Calculated Osmolality 282 Calcium 9.3 Corrected Calcium 9.4 Phosphorus 3.0 Magnesium 1.6 Total Bilirubin 0.6 AST 75 H ALT 109 H Alkaline Phosphatase 184 H D Total Protein 6.2 Albumin 3.9 Globulin 2.3 Albumin/Globulin Ratio 1.7 Coccidioides IgM Ab Negative Assessment & Plan A&P Narrative hx of crohn's disease. with low esr and crp mild discitis in lumbar spine with low esr and crp abn ua with mixed cx noted, likely poor collection but no sx usually if bc are neg then we need an aspiration of the affected area to make a dx. I ordered some tests for am. cocci, qtf, esr and crp but did not order a bx but that would normally be my favored test here if bc with a likely pathogen, we can target that for rx if not, then we need that biopsy or you can arrange rocephin 2 gm iv daily for 8 weeks from admit and po doxy 100 bid for same duration. weekly cbc, renal panel, esr I simply can not see her in f/u on a timely basis. if you give her iv rx. then you also need to figure out how to do itas there are some logistic challenges. advised pt that she may have to stay pending the bx data. I may be able to review data tomorrow, but if gram stain neg, and crp nearly normal still, then 8 weeks po doxy ok with me. crp may be up a bit following surgery earlier today Time Spent With Patient Time: Total time spent is greater than 50% in coordination of care (as documented) at patient's floor/unit and/or counseling patient:
[2025-04-05] MEDS: fentaNYL CIT INJ 50 mCg/ML AMP 2ML 100 MCG IVP (10:41)
[2025-04-05 11:05] LABS: C-Reactive Protein 1.1 mg/dL (0.0-0.9)
[2025-04-05 13:34] LABS: Cocci Serology, IgG Negative (Negative)
--- NOTE | 2025-04-05 13:45 | ESPR_ITS ---
Documentation for date of: 04/05/25 Senior resident attestation: Patient evaluated and examined at the bedside, plan of care discussed with rest of the team including my attending physician, except as noted. CT and MRI findings concerning for discitis L5-S1/osteomyelitis. Infectious especially Dr Cleaning was consulted, blood cultures negative to date, will need tissue biopsy to determine use of long-term antibiotics for osteomyelitis/discitis. The case was discussed in detail with the patient, agreed with proceeding with CT-guided biopsy, pending final results for bone biopsy. Continued on IV antibiotics ceftriaxone and p.o. doxycycline. Multimodal analgesia added. Quresh PGY3 Subjective Subjective Interval history: No Overnight events. Labs reviewed and patient examined at the bedside. Patient received CT-guided percutaneous biopsy/aspiration L5-S1 disc. Gram stain, abscess culture and anaerobic culture is pending. Blood culture was negative for 48hrs. Patient endorses lower back pain. Denies chest pain, shortness of breathe, nausea, vomiting, fevers or chills. Exam Vital Signs Temp Pulse Resp BP Pulse Ox O2 Del Method O2 Flow Rate 98.1 F 79 15 160/96 H 99 Room Air 3 04/05/25 10:35 04/05/25 10:35 04/05/25 10:35 04/05/25 10:35 04/05/25 10:35 04/05/25 10:35 04/05/25 10:25 Narrative Exam General: No acute distress, well nourished Eye: PERRL, EOMI, normal conjunctiva, no scleral icterus HENT: Normocephalic, atraumatic, hearing intact to conversation at normal volume, moist oral mucosa Neck: Supple, non-tender, no JVD, no lymphadenopathy Lungs: Non-labored respirations, symmetric chest rise, Clear to auscultate bilaterally Heart: Peripheral pulses intact bilaterally Abdomen: Soft, non-tender, non-distended Musculoskeletal: Normal range of motion and strength. severe pain in lower back Skin: Skin is warm, dry, no rashes or lesions. Psychiatric: Cooperative, appropriate mood and affect Neuro: Cranial nerves II-XII grossly intact. Strength 5/5 throughout. Sensations intact to light touch. Objective Labs 04/06/25 05:29 04/06/25 05:29 Labs: Laboratory Results - last 24 hr 04/04/25 04/05/25 05:23 04:50 WBC 7.3 RBC 5.06 Hgb 12.3 Hct 39.2 MCV 78 L MCH 24.3 L MCHC 31.4 RDW Std Deviation 47.5 H Plt Count 317 Neut % (Auto) 39 Lymph % (Auto) 43 [place] % (Auto) 13 H Eos % (Auto) 4 Baso % (Auto) 1 Neut # (Auto) 2.9 Lymph # (Auto) 3.1 [place] # (Auto) 1.0 H Eos # (Auto) 0.3 Baso # (Auto) 0.0 Immature Gran # (Auto) 0.04 H Absolute Nucleated RBC 0.00 Immature Gran % 1 H Nucleated RBC % 0 PT 10.9 INR 1.0 APTT 25.7 Sodium 142 Potassium 3.9 Chloride 104 Carbon Dioxide 28.2 Anion Gap 10 BUN 11 Creatinine 0.8 Estim Creat Clear Calc 59.4 L eGFR > 60 BUN/Creatinine Ratio 14 Glucose 99 Calculated Osmolality 282 Calcium 9.3 Corrected Calcium 9.4 Phosphorus 3.0 Magnesium 1.6 Total Bilirubin 0.6 AST 75 H ALT 109 H Alkaline Phosphatase 184 H D C-Reactive Prot, Quant 1.1 H Total Protein 6.2 Albumin 3.9 Globulin 2.3 Albumin/Globulin Ratio 1.7 Coccidioides IgG Ab Negative Quality Measures Quality Measures none Advance care planning discussed with:: patient Assessment & Plan Assessment Current Active Medications: Generic Name Dose Route Start Last Admin Trade Name Freq PRN Reason Stop Dose Admin Acetaminophen 650 mg 04/02/25 14:13 Acetaminophen 325 Mg Tablet PO 05/02/25 14:12 Q6H PRN Mild Pain 1-3 or Fever 100.3 Hydrocodone Bitart/Acetaminophen 1 tab 04/02/25 14:13 04/05/25 09:40 Hydrocodone/Apap 5/325 Tablet PO 04/07/25 14:12 1 tab Q4HR PRN Administration PAIN SCALE 4-6 (Moderate Doxycycline Hyclate 100 mg 04/03/25 21:00 04/05/25 09:20 Doxycycline 100 Mg Tablet PO 05/27/25 12:00 Not Given BID OSIEL Famotidine 20 mg 04/04/25 09:00 04/05/25 09:20 Famotidine 20 Mg Tablet PO 05/02/25 14:29 Not Given DAILY OSIEL Hydralazine HCl 10 mg 04/02/25 18:08 Hydralazine Inj 20 Mg/Ml Vial IVP 05/02/25 18:07 Q6HR PRN Hypertension Ceftriaxone Sodium/Dextrose 2 gm in 50 mls @ 100 mls/hr 04/06/25 09:00 Rocephin/D5w 2gm IV 05/27/25 12:00 QDAY OSIEL Morphine Sulfate 2 mg 04/02/25 14:13 04/05/25 04:21 Morphine Sulf Inj 10 Mg/Ml Vial IVP 04/07/25 14:12 2 mg Q4HR PRN Administration PAIN SCALE 7-10 (Severe Ondansetron HCl 4 mg 04/02/25 14:13 Ondansetron Inj 2 Mg/Ml Inj 2 Ml IVP 05/02/25 14:12 Q6H PRN NAUSEA OR VOMITING Protocol Sennosides 1 tab 04/02/25 14:30 04/05/25 09:21 Senna Tablet PO 05/02/25 14:29 Not Given QDAY [facility] Protocol Tramadol HCl 50 mg 04/04/25 20:28 04/05/25 05:53 Tramadol Hcl 50 Mg Tablet PO 04/09/25 20:27 50 mg Q4H PRN Administration pain 4-6 Protocol Plan 74 year old female with PMH of Lichen sclerosus, Crohn's disease, osteopenia, presented to the ED on 04/02/2020 with lower back pain started roughly 1 month ago and worsened 5 days ago after trying to lift an object. Patient will be admitted for management of her discitis and possible osteoblastic metastatic disease. #Discitis L5-S1, L2-L3 -Temp: 97.2F, WBC:10.6, ESR:34 and CRP:1.6, Minimally elevated ESR and CRP on admission. -Lumbar spine CT (04/02/2025): Findings suspicious for osteomyelitis discitis L5-S1 level, Sclerotic foci right first sacral segment and L1 vertebral body, consider osteoblastic metastatic disease. Plan: -Blood culture no growth for 48hrs. -ECHO: No clear vegetation noted but TTE suboptimal to rule out any endocarditis.Normal LV size Estimated EF 65-70%. Grade I diastolic dysfunction. -MRI lumbar w/ and w/o contrast: No findings diagnostic for osteomyelitis, Mild discitis at the L5-S1, L2-L3 level -After MRI, consider bone biopsy -Started on IV Rocephin 2g IV qd and Doxycycline 100mg PO bid -Patient received CT-guided percutaneous biopsy/aspiration L5-S1 disc -Currently following Infectious Disease specialist, Dr. Cleaning for future plans. -Gram stain, abscess culture and anaerobic culture from bone biopsy is pending. #?Osteoblastic metastatic disease -Lumbar spine CT (04/02/2025): consider osteoblastic metastatic disease. -Referral to Outpatient whole body bone scan. #Crohn's disease -Mesalamine listed as home medication but patient was only taking prednisone as a flare-up -Currently has Dr. Anders as a GI specialist Disposition: Admitted for possible osteomyelitis. Pending Blood culture and MRI lumbar w/ and w/o Diet: Regular GI prophylaxis: Famotidine DVT prophylaxis: SCD Code: FULL Assessment and plan discussed with my attending physician Dr. Willingham and Dr. Mar (PGY-3) Dr. Martell (PGY-1)- Internal medicine resident Attending Provider Attestation/Addendum I have examined the patient, reviewed labs and imaging findings, discussed the case with the resident(s), and reviewed entered orders. I agree with the plan of care as outlined in this note, with these additional summaries/recommendations: Patient is a 74-year-old female with a medical history of Crohn's disease on as needed prednisone, lichen sclerosis, osteopenia, and chronic lower back pain presents to [facility] emergency department on 04/02/2025 with chief complaint of intractable back pain and failed outpatient pain management. Patient seen at bedside. No acute overnight events. Patient seen shortly after returning from bone biopsy. She appears to have tolerated it well. Advised patient to keep bed flat for a few hours and she denies headache at this time. She continues to endorse moderate to severe back pain with Zoila Emery although no red flag symptoms present. On admission Lumbar spine revealed suspicion for osteomyelitis/discitis at L5-S1 level. ESR 34 and CRP 1.6. MRI lumbar spine was obtained which revealed no findings diagnostic of osteomyelitis but did reveal discitis at L5-S1 level suspicious for osteo. Continue IV antibiotics and in-house infectious disease following. No growth on blood cultures thus far and. If bone biopsy returns negative patient may be able to be discharged home with oral antibiotics but if returns positive may require PICC line and extended course of IV antibiotics. Continue pain management. Lumbar spine CT also revealed sclerotic foci in first sacral segment and L1 vertebral body suspicious for osteoblastic metastatic disease and no evidence on MRI. Patient's Crohn's disease appears stable and we will defer prednisone for now. Patient updated on the plan and agreement. All questions answered to satisfaction. Please see residents note for additional details and management. Dr. Maulik MD
--- NOTE | 2025-04-05 15:02 | PC.SS ---
Rounding: Pending IR BX, on IV ABX, poss DC home Tuesday
--- NOTE | 2025-04-05 19:10 | PC.NURSE ---
Pt seen at the nurses station, upset, looking for her nurse and wanting her pain medicine. Pt instructed to go back to her room and will get her pain med stat. Pt given her Amity as ordered for pain, pt stated that she doesn't like the Morphine because it only works for 5 min and her pain is back. Her nurse Shan is aware.
[2025-04-05] MEDS: LIDOCAINE 5% 1 PATCH TOP (19:50)
[2025-04-05] MEDS: DOXYCYCLINE 100 MG TABLET PO (20:21)
[2025-04-06] VITALS (9 sets, daily range): BP systolic 123–168; BP diastolic 64–91; PULSE 77–91; RESP 15–20; TEMP 36.1–36.9; O2SAT 95–97
[2025-04-06] MEDS: HYDROcodone/APAP 5/325 TABLET 1 TAB PO (00:28)
[2025-04-06 05:57] LABS: Basophils # (Auto) 0.1 Thou/mm3 (0.0-0.2); Basophils % (Auto) 1 % (0-2.5); Eosinophils # (Auto) 0.4 Thou/mm3 (0.0-0.5); Eosinophils % (Auto) 5 % (0-10); Hematocrit 41.4 % (36.0-46.0); Hemoglobin 13.3 g/dL (12.0-16.0); Immature Granulocytes Auto 0.04 Thou/mm3 (0.00-0.00); Lymphocytes # (Auto) 3.2 Thou/mm3 (1.0-4.8); Lymphocytes % (Auto) 41 % (10-50); Mean Corpuscular HGB Conc 32.1 g/dl (31.0-37.0); Mean Corpuscular Hemoglobin 24.2 pg (25.0-35.0); Mean Corpuscular Volume 75 fL (80-100); Monocytes # (Auto) 0.9 Thou/mm3 (0.0-0.8); Monocytes % (Auto) 12 % (0-12); Neutrophils # (Auto) 3.2 Thou/mm3 (1.8-7.7); Neutrophils % (Auto) 41 % (37-80); Nucleated Red Blood Cell # 0.00 Thou/mm3 (0.00-0.00); Nucleated Red Blood Cell % 0 /100 WBC (0); Platelet Count 334 Thou/mm3 (140-440); RDW Standard Deviation 45.1 fL (36.4-46.3); Red Blood Count 5.49 Miln/mm3 (4.00-5.20); White Blood Count 7.8 Thou/mm3 (3.6-11.0)
[2025-04-06 06:32] LABS: Alanine Aminotransferase 78 U/L (10-49); Albumin, Serum 4.1 gm/dL (3.4-4.8); Albumin/Globulin Ratio 1.6 (1.2-2.2); Alkaline Phosphatase 184 U/L (46-116); Anion Gap 11 (7-16); Aspartate Amino Transferase 36 U/L (0-34); BUN/Creatinine Ratio 14 Ratio (12-20); Bilirubin,Total 0.6 mg/dL (0.3-1.2); Blood Urea Nitrogen 11 mg/dL (9-23); Calcium 9.0 mg/dL (8.3-10.6); Calcium (Corrected) 9.0 mg/dL (8.5-10.1); Carbon Dioxide 26.2 mMol/L (20.0-31.0); Chloride 103 mMol/L (98-107); Creatinine (Component) 0.8 mg/dL (0.6-1.3); Estimated Creatinine Clearance 59.4 mL/min (>60); Globulin 2.5 gm/dL (2.3-3.5); Glucose 109 mg/dL (74-106); Magnesium 2.2 mg/dL (1.6-2.6); Osmolality,Calculated 279 (275-295); Phosphorous 3.1 mg/dL (2.4-5.1); Potassium 3.8 mMol/L (3.4-5.1); Sodium 140 mMol/L (136-145); Total Protein 6.6 gm/dL (5.7-8.2); eGFR > 60 See Note
[2025-04-06] MEDS: GABAPENTIN 100 MG CAPSULE PO ×2 (08:33→21:12)
[2025-04-06] MEDS: DOXYCYCLINE 100 MG TABLET PO ×2 (08:33→21:12)
[2025-04-06] MEDS: cefTRIAXone/D5w 2gm 2 GM/50 ML BAG IV (08:33)
[2025-04-06] MEDS: FAMOTIDINE 20 MG TABLET PO (08:34)
--- NOTE | 2025-04-06 11:37 | PC.NURSE ---
Pt complaining of pain. [place] ineffective. Patient has been receiving tramadol. discontinued tramadol. spoke with Dr. Mar to restart tramadol. will see patient before he restarts medication.
--- NOTE | 2025-04-06 13:52 | ESPR_ITS ---
Documentation for date of: 04/06/25 Subjective Subjective Interval history: No Overnight events. Labs reviewed and patient examined at the bedside. Bone biopsy results still pending. Patient noted for her pain medication tramadol is not working but not [place]. Added gabapentin as patient complained of neurologic pain that is going down on her right knee. Patient denies chest pain, palpitations, shortness of breath, abdominal pain, fevers, or chills. Exam Vital Signs Temp Pulse Resp BP Pulse Ox O2 Del Method O2 Flow Rate 98.5 F 86 16 141/79 H 95 Room Air 3 04/06/25 12:00 04/06/25 12:00 04/06/25 12:00 04/06/25 12:00 04/06/25 12:00 04/06/25 12:00 04/05/25 10:25 Narrative Exam General: No acute distress, well nourished Eye: PERRL, EOMI, normal conjunctiva, no scleral icterus HENT: Normocephalic, atraumatic, hearing intact to conversation at normal volume, moist oral mucosa Neck: Supple, non-tender, no JVD, no lymphadenopathy Lungs: Non-labored respirations, symmetric chest rise, Clear to auscultate bilaterally Heart: Peripheral pulses intact bilaterally Abdomen: Soft, non-tender, non-distended Musculoskeletal: Normal range of motion and strength. severe pain in lower back Skin: Skin is warm, dry, no rashes or lesions. Psychiatric: Cooperative, appropriate mood and affect Neuro: Cranial nerves II-XII grossly intact. Strength 5/5 throughout. Sensations intact to light touch. Objective Labs 04/07/25 05:14 04/07/25 05:14 Labs: Laboratory Results - last 24 hr 04/06/25 05:29 WBC 7.8 RBC 5.49 H Hgb 13.3 Hct 41.4 MCV 75 L MCH 24.2 L MCHC 32.1 RDW Std Deviation 45.1 Plt Count 334 Neut % (Auto) 41 Lymph % (Auto) 41 [place] % (Auto) 12 Eos % (Auto) 5 Baso % (Auto) 1 Neut # (Auto) 3.2 Lymph # (Auto) 3.2 Ruther[place] # (Auto) 0.9 H Eos # (Auto) 0.4 Baso # (Auto) 0.1 Immature Gran # (Auto) 0.04 H Absolute Nucleated RBC 0.00 Immature Gran % 1 H Nucleated RBC % 0 Sodium 140 Potassium 3.8 Chloride 103 Carbon Dioxide 26.2 Anion Gap 11 BUN 11 Creatinine 0.8 Estim Creat Clear Calc 59.4 L eGFR > 60 BUN/Creatinine Ratio 14 Glucose 109 H Calculated Osmolality 279 Calcium 9.0 Corrected Calcium 9.0 Phosphorus 3.1 Magnesium 2.2 Total Bilirubin 0.6 AST 36 H ALT 78 H Alkaline Phosphatase 184 H Total Protein 6.6 Albumin 4.1 Globulin 2.5 Albumin/Globulin Ratio 1.6 Quality Measures Quality Measures none Advance care planning discussed with:: patient Assessment & Plan Assessment Current Active Medications: Generic Name Dose Route Start Last Admin Trade Name Freq PRN Reason Stop Dose Admin Acetaminophen 650 mg 04/02/25 14:13 Acetaminophen 325 Mg Tablet PO 05/02/25 14:12 Q6H PRN Mild Pain 1-3 or Fever 100.3 Hydrocodone Bitart/Acetaminophen 1 tab 04/02/25 14:13 04/06/25 00:28 Hydrocodone/Apap 5/325 Tablet PO 04/10/25 14:12 1 tab Q4HR PRN Administration PAIN SCALE 4-6 (Moderate Doxycycline Hyclate 100 mg 04/03/25 21:00 04/06/25 08:33 Doxycycline 100 Mg Tablet PO 05/27/25 12:00 100 mg BID OSIEL Administration Famotidine 20 mg 04/04/25 09:00 04/06/25 08:34 Famotidine 20 Mg Tablet PO 05/02/25 14:29 20 mg DAILY OSIEL Administration Gabapentin 100 mg 04/06/25 09:00 04/06/25 08:33 Gabapentin 100 Mg Capsule PO 05/06/25 08:59 100 mg BID OSIEL Administration Hydralazine HCl 10 mg 04/02/25 18:08 Hydralazine Inj 20 Mg/Ml Vial IVP 05/02/25 18:07 Q6HR PRN Hypertension Ceftriaxone Sodium/Dextrose 2 gm in 50 mls @ 100 mls/hr 04/06/25 09:00 04/06/25 08:33 Rocephin/D5w 2gm IV 05/27/25 12:00 100 mls/hr QDAY OSIEL Administration Morphine Sulfate 2 mg 04/02/25 14:13 04/05/25 16:49 Morphine Sulf Inj 10 Mg/Ml Vial IVP 04/07/25 14:12 2 mg Q4HR PRN Administration PAIN SCALE 7-10 (Severe Protocol Ondansetron HCl 4 mg 04/02/25 14:13 Ondansetron Inj 2 Mg/Ml Inj 2 Ml IVP 05/02/25 14:12 Q6H PRN NAUSEA OR VOMITING Protocol Sennosides 1 tab 04/02/25 14:30 04/06/25 08:34 Senna Tablet PO 05/02/25 14:29 1 tab QDAY OSIEL Administration Protocol Tramadol HCl 50 mg 04/06/25 12:52 04/06/25 13:16 Tramadol Hcl 50 Mg Tablet PO 04/11/25 12:51 50 mg Q4HR PRN Administration Pain 7-10 Plan 74 year old female with PMH of Lichen sclerosus, Crohn's disease, osteopenia, presented to the ED on 04/02/2020 with lower back pain started roughly 1 month ago and worsened 5 days ago after trying to lift an object. Patient will be admitted for management of her discitis and possible osteoblastic metastatic disease. #Discitis L5-S1, L2-L3 -Temp: 97.2F, WBC:10.6, ESR:34 and CRP:1.6, Minimally elevated ESR and CRP on admission. -Lumbar spine CT (04/02/2025): Findings suspicious for osteomyelitis discitis L5-S1 level, Sclerotic foci right first sacral segment and L1 vertebral body, consider osteoblastic metastatic disease. Plan: -Blood culture no growth for 48hrs. -ECHO: No clear vegetation noted but TTE suboptimal to rule out any endocarditis.Normal LV size Estimated EF 65-70%. Grade I diastolic dysfunction. -MRI lumbar w/ and w/o contrast: No findings diagnostic for osteomyelitis, Mild discitis at the L5-S1, L2-L3 level -After MRI, consider bone biopsy -Started on IV Rocephin 2g IV qd and Doxycycline 100mg PO bid -Patient received CT-guided percutaneous biopsy/aspiration L5-S1 disc -Currently following Infectious Disease specialist, Dr. Cleaning for future plans. -Gram stain, abscess culture and anaerobic culture from bone biopsy is pending. -Gram stain bone biopsy: No organism or WBC seen. #?Osteoblastic metastatic disease -Lumbar spine CT (04/02/2025): consider osteoblastic metastatic disease. -Referral to Outpatient whole body bone scan. #Crohn's disease -Mesalamine listed as home medication but patient was only taking prednisone as a flare-up -Currently has Dr. Anders as a GI specialist Disposition: Admitted for possible osteomyelitis. Pending Blood culture and MRI lumbar w/ and w/o Diet: Regular GI prophylaxis: Famotidine DVT prophylaxis: SCD Code: FULL Assessment and plan discussed with my attending physician Dr. Maulik Martell (PGY-1)- Internal medicine resident Attending Provider Attestation/Addendum I have examined the patient, reviewed labs and imaging findings, discussed the case with the resident(s), and reviewed entered orders. I agree with the plan of care as outlined in this note, with these additional summaries/recommendations: Patient is a 74-year-old female with a medical history of Crohn's disease on as needed prednisone, lichen sclerosis, osteopenia, and chronic lower back pain presents to [facility] emergency department on 04/02/2025 with chief complaint of intractable back pain and failed outpatient pain management. Patient seen at bedside. No acute overnight events. Patient is s/p bone biopsy. Patient tolerated procedure well. She endorses improvement in back pain with current regimen. On admission Lumbar spine revealed suspicion for osteomyelitis/discitis at L5-S1 level. ESR 34 and CRP 1.6. MRI lumbar spine was obtained which revealed no findings diagnostic of osteomyelitis but did reveal discitis at L5-S1 level suspicious for osteo. Continue IV antibiotics and in-house infectious disease following. No growth on blood cultures thus far and. If bone biopsy returns negative patient may be able to be discharged home with oral antibiotics but if returns positive may require PICC line and extended course of IV antibiotics although we will discuss fidnings with ID before proceeding. Continue pain management. Lumbar spine CT also revealed sclerotic foci in first sacral segment and L1 vertebral body suspicious for osteoblastic metastatic disease and no evidence on MRI. Patient's Crohn's disease appears stable and we will defer prednisone for now. Patient updated on the plan and agreement. All questions answered to satisfaction. Please see residents note for additional details and management. Dr. Maulik MD
[2025-04-06] MEDS: MG HYD/AL HYD/SIME (Maalox Reg) SUSP 30 ML UDC PO (23:22)
[2025-04-07] VITALS (9 sets, daily range): BP systolic 106–151; BP diastolic 75–85; PULSE 80–122; RESP 15–19; TEMP 36.4–36.8; O2SAT 94–95
[2025-04-07 05:57] LABS: Basophils # (Auto) 0.1 Thou/mm3 (0.0-0.2); Basophils % (Auto) 1 % (0-2.5); Eosinophils # (Auto) 0.3 Thou/mm3 (0.0-0.5); Eosinophils % (Auto) 4 % (0-10); Hematocrit 43.2 % (36.0-46.0); Hemoglobin 13.6 g/dL (12.0-16.0); Immature Granulocytes Auto 0.05 Thou/mm3 (0.00-0.00); Lymphocytes # (Auto) 3.1 Thou/mm3 (1.0-4.8); Lymphocytes % (Auto) 37 % (10-50); Mean Corpuscular HGB Conc 31.5 g/dl (31.0-37.0); Mean Corpuscular Hemoglobin 24.2 pg (25.0-35.0); Mean Corpuscular Volume 77 fL (80-100); Monocytes # (Auto) 0.9 Thou/mm3 (0.0-0.8); Monocytes % (Auto) 11 % (0-12); Neutrophils # (Auto) 4.0 Thou/mm3 (1.8-7.7); Neutrophils % (Auto) 47 % (37-80); Nucleated Red Blood Cell # 0.00 Thou/mm3 (0.00-0.00); Nucleated Red Blood Cell % 0 /100 WBC (0); Platelet Count 356 Thou/mm3 (140-440); RDW Standard Deviation 46.6 fL (36.4-46.3); Red Blood Count 5.62 Miln/mm3 (4.00-5.20); White Blood Count 8.4 Thou/mm3 (3.6-11.0)
[2025-04-07 06:36] LABS: Alanine Aminotransferase 55 U/L (10-49); Albumin, Serum 4.1 gm/dL (3.4-4.8); Albumin/Globulin Ratio 1.6 (1.2-2.2); Alkaline Phosphatase 174 U/L (46-116); Anion Gap 11 (7-16); Aspartate Amino Transferase 20 U/L (0-34); BUN/Creatinine Ratio 14 Ratio (12-20); Bilirubin,Total 0.7 mg/dL (0.3-1.2); Blood Urea Nitrogen 14 mg/dL (9-23); Calcium 9.4 mg/dL (8.3-10.6); Calcium (Corrected) 9.4 mg/dL (8.5-10.1); Carbon Dioxide 27.3 mMol/L (20.0-31.0); Chloride 106 mMol/L (98-107); Creatinine (Component) 1.0 mg/dL (0.6-1.3); Estimated Creatinine Clearance 47.5 mL/min (>60); Globulin 2.5 gm/dL (2.3-3.5); Glucose 116 mg/dL (74-106); Magnesium 1.9 mg/dL (1.6-2.6); Osmolality,Calculated 288 (275-295); Phosphorous 3.6 mg/dL (2.4-5.1); Potassium 4.3 mMol/L (3.4-5.1); Sodium 144 mMol/L (136-145); Total Protein 6.6 gm/dL (5.7-8.2); eGFR 59 See Note
[2025-04-07] MEDS: DOXYCYCLINE 100 MG TABLET PO ×2 (08:57→21:38)
[2025-04-07] MEDS: cefTRIAXone/D5w 2gm 2 GM/50 ML BAG IV (08:57)
[2025-04-07] MEDS: GABAPENTIN 100 MG CAPSULE PO ×2 (08:57→21:38)
[2025-04-07] MEDS: FAMOTIDINE 20 MG TABLET PO (08:58)
[2025-04-07] MEDS: HYDROcodone/APAP 5/325 TABLET 1 TAB PO (14:20)
--- NOTE | 2025-04-07 14:42 | PD.RESPRO ---
Documentation for date of: 04/07/25 Subjective Subjective Interval history: No overnight events. Improved lower back pain. Continues to have full range of motion and no paresthesia. No bowel incontinence. Patient is pending bone culture s/p biopsy to rule out osteomyelitis of L5-S1 which will likely results within the next 24 hours. Plan to discharge within the next 24 hours, pending culture and recommendations from infectious disease. Exam Vital Signs Temp Pulse Resp BP Pulse Ox O2 Del Method O2 Flow Rate 98.0 F 80 16 150/75 H 94 L Room Air 3 04/07/25 12:00 04/07/25 12:04/07/25 12:04/07/25 12:04/07/25 12:04/07/25 12:04/05/25 10:25 Narrative Exam General Appearance: Alert & Oriented X3, well-nourished female who is lying in bed in no acute distress HEENT: Skull symmetrical and atraumatic. Conjunctivae pale pink and moist. Pupils equal, round, reactive to light and accommodation (PERRL). External ear without lesion or discharge. Straight, nares patient, mucosa pink, no discharge. No thyroid nodule appreciated. Cardio: Normal Rate and Rhythm with S1 and S2 heart sounds. No murmurs or extra heart sounds auscultated. No bruits on carotid auscultation. No peripheral edema or cyanosis. Lungs: Symmetric with good expansion. Chest and back non-tender. Breath sounds vesicular without crackles, wheezing or rhonchi Abdomen: Non-tender, Non-distended, Normal Reactive Bowel Sounds Neuro: Alert, cooperative, oriented to person, place, and time. Speech clear. CN grossly intact. Upper motor strength 5/5 and Lower motor strength 5/5. Sensation intact. Objective Labs 04/08/25 05:10 04/08/25 05:10 Labs: Laboratory Results - last 24 hr 04/07/25 05:14 WBC 8.4 RBC 5.62 H Hgb 13.6 Hct 43.2 MCV 77 L MCH 24.2 L MCHC 31.5 RDW Std Deviation 46.6 H Plt Count 356 Neut % (Auto) 47 Lymph % (Auto) 37 [place] % (Auto) 11 Eos % (Auto) 4 Baso % (Auto) 1 Neut # (Auto) 4.0 Lymph # (Auto) 3.1 [place] # (Auto) 0.9 H Eos # (Auto) 0.3 Baso # (Auto) 0.1 Immature Gran # (Auto) 0.05 H Absolute Nucleated RBC 0.00 Immature Gran % 1 H Nucleated RBC % 0 Sodium 144 Potassium 4.3 D Chloride 106 Carbon Dioxide 27.3 Anion Gap 11 BUN 14 Creatinine 1.0 Estim Creat Clear Calc 47.5 L eGFR 59 L BUN/Creatinine Ratio 14 Glucose 116 H Calculated Osmolality 288 Calcium 9.4 Corrected Calcium 9.4 Phosphorus 3.6 Magnesium 1.9 Total Bilirubin 0.7 AST 20 ALT 55 H Alkaline Phosphatase 174 H Total Protein 6.6 Albumin 4.1 Globulin 2.5 Albumin/Globulin Ratio 1.6 Quality Measures Quality Measures none Advance care planning discussed with:: patient Assessment & Plan Assessment Current Active Medications: Generic Name Dose Route Start Last Admin Trade Name Freq PRN Reason Stop Dose Admin Acetaminophen 650 mg 04/02/25 14:13 Acetaminophen 325 Mg Tablet PO 05/02/25 14:12 Q6H PRN Mild Pain 1-3 or Fever 100.3 Hydrocodone Bitart/Acetaminophen 1 tab 04/02/25 14:13 04/07/25 14:20 Hydrocodone/Apap 5/325 Tablet PO 04/10/25 14:12 1 tab Q4HR PRN Administration PAIN SCALE 4-6 (Moderate Al Hydrox/Mg Hydrox/Simethicone 30 ml 04/06/25 23:12 04/06/25 23:22 Mg Hyd/Al Hyd/Mayra (Maalox Reg) Susp 30 Ml Udc PO 05/06/25 23:11 30 ml Q4HR PRN Administration UPSET STOMACH/INDIGESTION Doxycycline Hyclate 100 mg 04/03/25 21:00 04/07/25 08:57 Doxycycline 100 Mg Tablet PO 05/27/25 12:00 100 mg BID OSIEL Administration Famotidine 20 mg 04/04/25 09:00 04/07/25 08:58 Famotidine 20 Mg Tablet PO 05/02/25 14:29 20 mg DAILY OSIEL Administration Gabapentin 100 mg 04/06/25 09:00 04/07/25 08:57 Gabapentin 100 Mg Capsule PO 05/06/25 08:59 100 mg BID OSIEL Administration Hydralazine HCl 10 mg 04/02/25 18:08 Hydralazine Inj 20 Mg/Ml Vial IVP 05/02/25 18:07 Q6HR PRN Hypertension Ceftriaxone Sodium/Dextrose 2 gm in 50 mls @ 100 mls/hr 04/06/25 09:00 04/07/25 08:57 Rocephin/D5w 2gm IV 05/27/25 12:00 100 mls/hr QDAY OSIEL Administration Lisinopril 5 mg 04/07/25 09:00 04/07/25 08:58 Lisinopril 2.5 Mg Tablet PO 05/07/25 08:59 5 mg QDAY OSIEL Administration Ondansetron HCl 4 mg 04/02/25 14:13 Ondansetron Inj 2 Mg/Ml Inj 2 Ml IVP 05/02/25 14:12 Q6H PRN NAUSEA OR VOMITING Protocol Sennosides 1 tab 04/02/25 14:30 04/07/25 08:58 Senna Tablet PO 05/02/25 14:29 Not Given QDAY OSIEL Protocol Tramadol HCl 50 mg 04/06/25 12:52 04/07/25 10:49 Tramadol Hcl 50 Mg Tablet PO 04/11/25 12:51 50 mg Q4HR PRN Administration Pain 7-10 Plan 74 year old female with PMH of Lichen sclerosus, Crohn's disease, osteopenia, presented to the ED on 04/02/2020 with lower back pain started roughly 1 month ago and worsened 5 days ago after trying to lift an object. Patient will be admitted for management of her discitis and possible osteoblastic metastatic disease. #Discitis L5-S1, L2-L3 Initial Lumbar CT spine, noted for concern for osteomyelitis, mild elevation in CRP 1.6, no leukocystosis noted on labs and no pyrexia noted. Patient continues to deny chills or pyrexia. Blood cultures have been negative for 48 hours, osteomyelitis less likely, but can not be ruled out, pending bone culture vs discitis given repeat images vs osteoporosis given increase risk based on age, gender, and history of steriod use, recommended DEXA scan. Endocarditis ruled out. Diagnostics: -Temp: 97.2F, WBC:10.6, ESR:34 and CRP:1.6, Minimally elevated ESR and CRP on admission. -MRI lumbar w/ and w/o contrast: No findings diagnostic for osteomyelitis, Mild discitis at the L5-S1, L2-L3 level -Lumbar spine CT (04/02/2025): Findings suspicious for osteomyelitis discitis L5-S1 level, Sclerotic foci right first sacral segment and L1 vertebral body, consider osteoblastic metastatic disease. -ECHO: No clear vegetation noted but TTE suboptimal to rule out any endocarditis.Normal LV size Estimated EF 65-70%. Grade I diastolic dysfunction. Plan: -Started on IV Rocephin 2g IV qd and Doxycycline 100mg PO bid -Patient received CT-guided percutaneous biopsy/aspiration L5-S1 disc -Currently following Infectious Disease specialist, Dr. Cleaning for future plans. -Gram stain bone biopsy: No organism or WBC seen, pending final result #?Osteoblastic metastatic disease Concern for osteoblastic lesions noted at lumbar CT spine (04/02/2025) on first sacral segment and L1 vertebral body. Patient denied any past medical history of weight loss or history of malignancy. Diagnostics: Lumbar CT Spine (04/02/2025): Findings suspicious for osteomyelitis discitis L5-S1 level. Sclerotic foci right first sacral segment and L1 vertebral body, consider osteoblastic metastatic disease Plan -Consider whole body bone scan #History Crohn's disease -Mesalamine listed as home medication but patient was only taking prednisone as a flare-up -Currently has Dr. Anders as a GI specialist Disposition: Admitted for possible osteomyelitis. Pending bone culture, likely result in the next 24 hours. Diet: Regular GI prophylaxis: Famotidine DVT prophylaxis: SCD Code: FULL - The patient's plan was discussed with attending Dr. Maulik Aparicio MD PGY2 Internal Medicine Attending Provider Attestation/Addendum I have examined the patient, reviewed labs and imaging findings, discussed the case with the resident(s), and reviewed entered orders. I agree with the plan of care as outlined in this note, with these additional summaries/recommendations: Patient is a 74-year-old female with a medical history of Crohn's disease on as needed prednisone, lichen sclerosis, osteopenia, and chronic lower back pain presents to [facility] emergency department on 04/02/2025 with chief complaint of intractable back pain and failed outpatient pain management. Patient seen at bedside. No acute overnight events. Patient reports improvement in her back pain and sciatica. She responds well to tramadol and has improvement in sciatica with gabapentin. Patient is status post bone biopsy of spine. Gram stain currently showing no growth and awaiting final culture results. Continue IV antibiotics for now. Order ESR and CRP for tomorrow. If bone biopsy results return negative she may benefit from an oral course of antibiotics given radiographic findings and her symptoms. We will discussed with in-house infectious disease. Patient noted to be mildly hypertensive with systolic blood pressure trending into the 150s and started on low-dose lisinopril. As needed hydralazine for SBP greater than 180. Patient updated on the plan and in agreement. Please see residents note for additional details and management. Dr. Maulik MD
[2025-04-08] VITALS (9 sets, daily range): BP systolic 107–157; BP diastolic 62–89; PULSE 79–95; RESP 16–18; TEMP 36.1–36.4; O2SAT 94–97
[2025-04-08 05:43] LABS: Basophils # (Auto) 0.1 Thou/mm3 (0.0-0.2); Basophils % (Auto) 1 % (0-2.5); Eosinophils # (Auto) 0.4 Thou/mm3 (0.0-0.5); Eosinophils % (Auto) 4 % (0-10); Hematocrit 41.9 % (36.0-46.0); Hemoglobin 13.3 g/dL (12.0-16.0); Immature Granulocytes Auto 0.05 Thou/mm3 (0.00-0.00); Lymphocytes # (Auto) 3.8 Thou/mm3 (1.0-4.8); Lymphocytes % (Auto) 38 % (10-50); Mean Corpuscular HGB Conc 31.7 g/dl (31.0-37.0); Mean Corpuscular Hemoglobin 24.3 pg (25.0-35.0); Mean Corpuscular Volume 77 fL (80-100); Monocytes # (Auto) 1.0 Thou/mm3 (0.0-0.8); Monocytes % (Auto) 10 % (0-12); Neutrophils # (Auto) 4.7 Thou/mm3 (1.8-7.7); Neutrophils % (Auto) 47 % (37-80); Nucleated Red Blood Cell # 0.00 Thou/mm3 (0.00-0.00); Nucleated Red Blood Cell % 0 /100 WBC (0); Platelet Count 355 Thou/mm3 (140-440); RDW Standard Deviation 46.3 fL (36.4-46.3); Red Blood Count 5.48 Miln/mm3 (4.00-5.20); White Blood Count 10.1 Thou/mm3 (3.6-11.0)
[2025-04-08 06:03] LABS: Sed Rate (ESR) 20 mm/hr (0-30)
[2025-04-08 06:20] LABS: Alanine Aminotransferase 38 U/L (10-49); Albumin, Serum 4.1 gm/dL (3.4-4.8); Albumin/Globulin Ratio 1.8 (1.2-2.2); Alkaline Phosphatase 159 U/L (46-116); Anion Gap 10 (7-16); Aspartate Amino Transferase 15 U/L (0-34); BUN/Creatinine Ratio 21 Ratio (12-20); Bilirubin,Total 0.6 mg/dL (0.3-1.2); Blood Urea Nitrogen 19 mg/dL (9-23); C-Reactive Protein < 0.5 mg/dL (0.0-0.9); Calcium 9.3 mg/dL (8.3-10.6); Calcium (Corrected) 9.3 mg/dL (8.5-10.1); Carbon Dioxide 26.5 mMol/L (20.0-31.0); Chloride 107 mMol/L (98-107); Creatinine (Component) 0.9 mg/dL (0.6-1.3); Estimated Creatinine Clearance 52.8 mL/min (>60); Globulin 2.3 gm/dL (2.3-3.5); Glucose 115 mg/dL (74-106); Magnesium 1.7 mg/dL (1.6-2.6); Osmolality,Calculated 288 (275-295); Phosphorous 4.0 mg/dL (2.4-5.1); Potassium 4.1 mMol/L (3.4-5.1); Sodium 143 mMol/L (136-145); Total Protein 6.4 gm/dL (5.7-8.2); eGFR > 60 See Note
[2025-04-08] MEDS: cefTRIAXone/D5w 2gm 2 GM/50 ML BAG IV (08:32)
[2025-04-08] MEDS: DOXYCYCLINE 100 MG TABLET PO (08:33)
[2025-04-08] MEDS: FAMOTIDINE 20 MG TABLET PO (08:33)
[2025-04-08] MEDS: GABAPENTIN 100 MG CAPSULE PO (08:33)
--- NOTE | 2025-04-08 10:23 | PC.SS ---
SS update: [employer] spoke to doctor to let them know pt. was wanting home health.
--- NOTE | 2025-04-08 14:06 | ESDS_ITS ---
Planned Discharge Date 04/08/25 DS: Providers Provider Date of admission: 04/02/25 14:13 Primary care physician: Mercedes Mathis NP Admitting Provider: Deshawn Willingham MD Attending Provider on Admission: Deshawn Willingham MD Consults: 04/02/25 14:20 Consult to Infectious Diseases Stat Comment: possible Osteo of lumbar region Consulting Provider: Ajay Cleannig 04/02/25 22:56 Referral Infection Control Routine Comment: Reason for Infection Control Referral: Multiple ABX (>2) Health [facility] Referral - Knowledge Deficit Routine Comment: Positive screening for knowledge deficit needs. Attending Provider on DC: RESIDENT Tanmay Discharging Provider: RESIDENT Tanmay DS: Diagnosis Problem List Completed Was Problem List Reviewed/Reconciled?: Yes Hospital Course Hospital Course Hospital course: Summary: 74 year old female with PMH of Lichen sclerosus, Crohn's disease, osteopenia, presented to the ED on 04/02/2020 with lower back pain. Patient has been admitted for management of her discitis L5-S1, L2-L3 and possible osteoblastic metastatic disease. Bone biopsy result was negative. Patient was discharged with oral antibiotics and pain medications. ED Course: In the ED, patient had a white count of 10.6 hemoglobin 13.5 MCV of 74 PT/INR within normal limits. Electrolytes are normal kidney functions normal glucose 112 lactic acid 1.4. Transaminases are within normal limits. C-reactive protein was 1.6 slightly elevated. Urinalysis has 21 white cells and 7 squames is not on clean-catch urine and she had no urinary symptoms. Received toradol and hydrocodone tablet for pain. CT scan of the back revealed osteomyelitis of her lumbar spine and possible osteoblastic metastatic disease. Recommended body bone scan follow up. Patient started on vancomycin and zosyn. Hospital Course Hospital Course: On admission, vitals and labs showed: Temp: 97.2F, WBC:10.6, ESR:34 and CRP:1.6, Minimally elevated ESR and CRP. Lumbar spine CT (04/02/2025) showed findings suspicious for osteomyelitis discitis L5-S1 level, Sclerotic foci right first sacral segment and L1 vertebral body, consider osteoblastic metastatic disease. ECHO showed No clear vegetation noted but TTE suboptimal to rule out any endocarditis.Normal LV size Estimated EF 65-70%. Grade I diastolic dysfunction. MRI lumbar w/ and w/o contrast: No findings diagnostic for osteomyelitis, Mild discitis at the L5-S1, L2-L3 level. Patient discontinued IV Vancomycin and IV Zoysn 3.375g and started on IV Rocephin 2g IV qd and Doxycycline 100mg PO bid. Patient received CT-Guided bone biopsy from which Gram stain, Abscess culture, and anaerobic culture was negative. Patient was discharged with oral doxycycline 100 mg PO bid for 6wks , Tramadol 50mg tablet PO q4h prn, and Gabapentin 100mg PO bid. Patient was told to discuss with her pcp to organize possible outpatient whole body bone scan based on lumbar spine CT (04/02/2025) results that showed suspicion for osteoblastic metastatic disease. #Discitis L5-S1, L2-L3 #?Osteoblastic metastatic disease #Crohn's disease Instructions -Doxycycline 100 mg orally until 05/27/2025 to complete 6 weeks of antibiotics -Please follow with your primary care provider with weekly labs: CBC, Renal Function Panel, and ESR -If you so wish, please follow up with your primary care provider with a bone scan, given possible osteoblastic lesions noted on images -Please follow up with your primary care provider within one week of discharge -If your symptoms worsen,please seek immediate medical attention and return to your nearest emergency room -If you do not have a primary care provider, you may follow up at the [facility] at [address] [place] [address] [address], [place] [address], Safe to discharge to Home Assessment and plan discussed with my attending physician Dr. Willingham and Dr. Mar (PGY-3) Dr. Martell (PGY-1)- Internal medicine resident Time Spent with Patient Time attestation: Total time spent providing and/or coordinating discharge services: Time spent: Greater than 30 minutes Exam Vital Signs Temp Pulse Resp BP Pulse Ox O2 Del Method O2 Flow Rate 97.2 F 85 17 135/80 H 97 Room Air 3 04/08/25 12:00 04/08/25 12:04/08/25 12:04/08/25 12:04/08/25 12:04/08/25 12:04/05/25 10:25 Narrative Exam General: No acute distress, well nourished Eye: PERRL, EOMI, normal conjunctiva, no scleral icterus HENT: Normocephalic, atraumatic, hearing intact to conversation at normal volume, moist oral mucosa Neck: Supple, non-tender, no JVD, no lymphadenopathy Lungs: Non-labored respirations, symmetric chest rise, Clear to auscultate bilaterally Heart: Peripheral pulses intact bilaterally Abdomen: Soft, non-tender, non-distended Musculoskeletal: Normal range of motion and strength. severe pain in lower back Skin: Skin is warm, dry, no rashes or lesions. Psychiatric: Cooperative, appropriate mood and affect Neuro: Cranial nerves II-XII grossly intact. Strength 5/5 throughout. Sensations intact to light touch. Discharge Plan Plan Patient Disposition: HOME (Self Care) Patient condition on transfer: Stable Care Plan Goals: Instructions -Doxycycline 100 mg orally until 05/27/2025 to complete 6 weeks of antibiotics -Please follow with your primary care provider with weekly labs: CBC, Renal Function Panel, and ESR -If you so wish, please follow up with your primary care provider with a bone scan, given possible osteoblastic lesions noted on images -Please follow up with your primary care provider within one week of discharge -If your symptoms worsen,please seek immediate medical attention and return to your nearest emergency room -If you do not have a primary care provider, you may follow up at the [facility] at [address], [place] [address], Prescriptions/Referrals Prescriptions/Med Rec: New doxycycline hyclate 100 mg tablet 100 mg PO BID 49 Days Qty: 98 0RF gabapentin 100 mg capsule 100 mg PO BID 30 Days Qty: 60 0RF lisinopril 5 mg tablet 5 mg PO QDAY 30 Days Qty: 30 0RF tramadol 50 mg tablet 50 mg PO QDAY 21 Days Qty: 21 0RF Discontinued tramadol 50 mg tablet 50 mg PO Q4H PRN (Reason: pain) Patient Comments: TAKE 1 TABLET BY MOUTH EVERY 4 HOURS FOR PAIN Referrals: Mercedes Mathis NP [Primary Care Provider] - Outpatient Orders (i.e. Home Health, Labs, Imaging): CBC (Routine) Location: None Selected Ordered By: Verenice Aparicio Sed Rate (ESR) (Routine) Location: None Selected Ordered By: Verenice Aparicio Renal Function Panel (Routine) Location: None Selected Ordered By: Verenice Aparicio Patient/Caregiver Discharge Instructions Education Materials: C-Reactive Protein (Blood), Anatomy of a Normal Spine, Osteomyelitis Dc Print Language: Malay Stand Alone Forms: Sonja Award Info., Patient Portal Info Letter Discharge Order Discharge Orders: Discharge (Routine); Ordered 04/08/25 Ordered By: Verenice Aparicio Quality Discharge Quality Measures VTE prophylaxis MD Attestestation MD Attestation I have examined the patient, reviewed labs and imaging findings, discussed the case with the resident(s), and reviewed entered orders. I agree with the plan of care as outlined in this note. Time Spent: [address] Maulik MD
== END 2025-04-08 15:53 | disposition home or self-care (01) | DRG 478 ==
LOC: SERX 13:49 → SERHOLD 15:06 → S3SX 21:04
PROVIDERS: Internal Medicine Infectious Disease; Nurse Practitioner Primary Care; Admitting Provider Student in an Organized Health Care Education/Training Program; PCP Nurse Practitioner Family; Visit Provider Student in an Organized Health Care Education/Training Program
DX: M46.27 Osteomyelitis of vertebra, lumbosacral region (principal); K50.90 Crohn's disease, unspecified, without complications; L90.0 Lichen sclerosus et atrophicus; M85.80 Other specified disorders of bone density and structure, unspecified site; Z79.899 Other long term (current) drug therapy; M46.49 Discitis, unspecified, multiple sites in spine; Z88.2 Allergy status to sulfonamides
CPT/HCPCS: 36415; 72131; 72158; 77012; 80053; 80061; 81001; 82550; 83605; 83735; 84100; 84145; 85025; 85610; 85652; 85730; 86140; 86331; 86480; 86635; 86803; 87040; 87070; 87075; 87086; 87205; 93225; 93306; 96365; 96366; 96375; 99284; A9579; J0696; J1885; J2270; J2405; J2543; J3010; J3372; J3373; J3475; J3490; J7050; A9270

== ENCOUNTER → 2025-04-16 | Outpatient (CLI) | payer MEDICARE, BC, SELFPAY ==
[2025-04-16 12:00] LABS: Basophils # (Auto) 0.1 Thou/mm3 (0.0-0.2); Basophils % (Auto) 1 % (0-2.5); Eosinophils # (Auto) 0.2 Thou/mm3 (0.0-0.5); Eosinophils % (Auto) 1 % (0-10); Hematocrit 44.3 % (36.0-46.0); Hemoglobin 14.0 g/dL (12.0-16.0); Immature Granulocytes Auto 0.09 Thou/mm3 (0.00-0.00); Lymphocytes # (Auto) 4.1 Thou/mm3 (1.0-4.8); Lymphocytes % (Auto) 32 % (10-50); Mean Corpuscular HGB Conc 31.6 g/dl (31.0-37.0); Mean Corpuscular Hemoglobin 24.0 pg (25.0-35.0); Mean Corpuscular Volume 76 fL (80-100); Monocytes # (Auto) 0.9 Thou/mm3 (0.0-0.8); Monocytes % (Auto) 7 % (0-12); Neutrophils # (Auto) 7.5 Thou/mm3 (1.8-7.7); Neutrophils % (Auto) 58 % (37-80); Nucleated Red Blood Cell # 0.00 Thou/mm3 (0.00-0.00); Nucleated Red Blood Cell % 0 /100 WBC (0); Platelet Count 386 Thou/mm3 (140-440); RDW Standard Deviation 44.9 fL (36.4-46.3); Red Blood Count 5.83 Miln/mm3 (4.00-5.20); White Blood Count 12.8 Thou/mm3 (3.6-11.0)
[2025-04-16 12:24] LABS: Anion Gap 12 (7-16); BUN/Creatinine Ratio 21 Ratio (12-20); Blood Urea Nitrogen 19 mg/dL (9-23); Calcium 9.5 mg/dL (8.3-10.6); Carbon Dioxide 25.5 mMol/L (20.0-31.0); Chloride 106 mMol/L (98-107); Creatinine (Component) 0.9 mg/dL (0.6-1.3); Glucose 99 mg/dL (74-106); Osmolality,Calculated 287 (275-295); Potassium 3.8 mMol/L (3.4-5.1); Sodium 143 mMol/L (136-145); eGFR > 60 See Note
[2025-04-16 12:38] LABS: Sed Rate (ESR) 7 mm/hr (0-30)
== END | disposition home or self-care (01) ==
LOC: COPL 11:07
PROVIDERS: PCP Nurse Practitioner Family; Referring Provider Nurse Practitioner Family; Visit Provider Nurse Practitioner Family
DX: M46.46 Discitis, unspecified, lumbar region (principal)
CPT/HCPCS: 36415; 80048; 85025; 85652

== ENCOUNTER → 2025-04-22 | Outpatient (CLI) | payer MEDICARE, BC, SELFPAY ==
[2025-04-22 10:06] LABS: Cardiac Risk Estimate 2.2 RATIO (3.7-5.6); Cholesterol 149 mg/dL (132-200); HDL Cholesterol 69 mg/dL (40-60); LDL Cholesterol,Calculated 61 mg/dL (0-130); Triglycerides 94 mg/dL (30-150)
[2025-04-22 10:09] LABS: Vitamin B12 580 pg/mL (211-911)
[2025-04-22 10:12] LABS: Glucose Estimated Average 154 mg/dL (80-131); Hemoglobin A1C 7.0 % Hgb (4.8-6.0)
[2025-04-22 10:18] LABS: Iron 92 mcg/dL (50-170)
[2025-04-22 10:35] LABS: Creatinine MALB Rnd Ur 171 mg/dL (30-125); Microalbumin Creat Ratio 12 mg/gCrea (<30); Microalbumin, Random Urine 21 mg/L (0-300)
== END | disposition home or self-care (01) ==
LOC: COPL 08:14
PROVIDERS: PCP Family Medicine; Referring Provider Nurse Practitioner Family; Visit Provider Nurse Practitioner Family
DX: Z00.00 Encounter for general adult medical examination without abnormal findings (principal); D50.0 Iron deficiency anemia secondary to blood loss (chronic); D51.9 Vitamin B12 deficiency anemia, unspecified; E11.9 Type 2 diabetes mellitus without complications
CPT/HCPCS: 36415; 80061; 82043; 82570; 82607; 83036; 83540

== ENCOUNTER → 2025-04-26 | Outpatient (CLI) | payer MEDICARE, BC, SELFPAY ==
--- NOTE | 2025-04-26 16:00 | XR_ITS ---
Examination: CT chest, without intravenous contrast. CT abdomen, without intravenous contrast. CT pelvis, without intravenous contrast. 2-D sagittal and coronal reconstructions. 3-D reconstructions. Date and time of exam:April 26, 2025 1121 hours COMPARISON: CT abdomen pelvis 05/17/2019 INDICATIONS: Lower back pain months, mild discitis at the L5-S1, L2-L3 levels on MR lumbar spine April 02, 2025, sclerotic foci right first sacral segment and L1 CT lumbar spine April 02, 2025 CTDI vol (mgy) 8.06 DLP (MGycm)537 Technique: Multiple CT images, 3.0 mm slice thickness, obtained chest, abdomen, pelvis, with the high-resolution 64 slice scanner.. Sagittal and coronal 2-D reconstructions are obtained. 3-D reconstructions Low dose protocols were performed. One or more of the following dose reduction techniques were used; automated exposure control, adjustment of the mA and/or KV according to patient size, use of iterative reconstruction technique. Findings: 4 mm right thyroid nodule No thoracic aortic aneurysmal dilatation No pulmonary artery emboli No paratracheal tracheobronchial or bronchopulmonary adenopathy No pneumonia or pulmonary edema or pleural disease Severe diffuse fatty infiltration throughout the liver Absent gallbladder Spleen not enlarged No pancreatic or adrenal mass No renal or ureteral calculi, no hydronephrosis Aorta normal size Normal appendix No bowel obstruction Retroverted uterus No urinary bladder mass 9 mm sclerotic focus right sacral wing image 326 Reactive bony endplate change L5-S1 with disc narrowing Sclerotic focus posterior L1 vertebral body 7 mm IMPRESSION: 1. Millimeter right thyroid nodule No mediastinal lymphadenopathy. No pneumonia or pulmonary edema pleural disease or pulmonary nodules Severe diffuse fatty infiltration throughout the liver 9 mm carotid focus right sacral wing 7 mm chronic focus L1 vertebral body Consider whole body radioisotope bone scan follow-up
== END | disposition home or self-care (01) ==
PROVIDERS: PCP Nurse Practitioner Family; Referring Provider Nurse Practitioner Family; Visit Provider Nurse Practitioner Family
DX: E04.1 Nontoxic single thyroid nodule (principal); K76.0 Fatty (change of) liver, not elsewhere classified
CPT/HCPCS: 71250; 74176

== ENCOUNTER → 2025-04-29 | Outpatient (CLI) | payer MEDICARE, BC, SELFPAY ==
[2025-04-29 08:58] LABS: Basophils # (Auto) 0.1 Thou/mm3 (0.0-0.2); Basophils % (Auto) 1 % (0-2.5); Eosinophils # (Auto) 0.5 Thou/mm3 (0.0-0.5); Eosinophils % (Auto) 5 % (0-10); Hematocrit 40.4 % (36.0-46.0); Hemoglobin 12.8 g/dL (12.0-16.0); Immature Granulocytes Auto 0.15 Thou/mm3 (0.00-0.00); Lymphocytes # (Auto) 3.1 Thou/mm3 (1.0-4.8); Lymphocytes % (Auto) 30 % (10-50); Mean Corpuscular HGB Conc 31.7 g/dl (31.0-37.0); Mean Corpuscular Hemoglobin 24.9 pg (25.0-35.0); Mean Corpuscular Volume 79 fL (80-100); Monocytes # (Auto) 0.9 Thou/mm3 (0.0-0.8); Monocytes % (Auto) 9 % (0-12); Neutrophils # (Auto) 5.7 Thou/mm3 (1.8-7.7); Neutrophils % (Auto) 54 % (37-80); Nucleated Red Blood Cell # 0.00 Thou/mm3 (0.00-0.00); Nucleated Red Blood Cell % 0 /100 WBC (0); Platelet Count 301 Thou/mm3 (140-440); RDW Standard Deviation 49.1 fL (36.4-46.3); Red Blood Count 5.14 Miln/mm3 (4.00-5.20); White Blood Count 10.5 Thou/mm3 (3.6-11.0)
[2025-04-29 09:19] LABS: Anion Gap 11 (7-16); BUN/Creatinine Ratio 19 Ratio (12-20); Blood Urea Nitrogen 17 mg/dL (9-23); Calcium 9.4 mg/dL (8.3-10.6); Carbon Dioxide 25.8 mMol/L (20.0-31.0); Chloride 105 mMol/L (98-107); Creatinine (Component) 0.9 mg/dL (0.6-1.3); Glucose 223 mg/dL (74-106); Osmolality,Calculated 291 (275-295); Potassium 3.6 mMol/L (3.4-5.1); Sodium 142 mMol/L (136-145); eGFR > 60 See Note
[2025-04-29 09:33] LABS: Sed Rate (ESR) 6 mm/hr (0-30)
== END | disposition home or self-care (01) ==
LOC: COPL 07:41
PROVIDERS: PCP Family Medicine; Referring Provider Nurse Practitioner Family; Visit Provider Nurse Practitioner Family
DX: M46.46 Discitis, unspecified, lumbar region (principal)
CPT/HCPCS: 36415; 80048; 85025; 85652

== ENCOUNTER → 2025-05-06 | Outpatient (CLI) | payer MEDICARE, BC, SELFPAY ==
[2025-05-06 10:28] LABS: Basophils # (Auto) 0.1 Thou/mm3 (0.0-0.2); Basophils % (Auto) 1 % (0-2.5); Eosinophils # (Auto) 0.3 Thou/mm3 (0.0-0.5); Eosinophils % (Auto) 3 % (0-10); Hematocrit 43.3 % (36.0-46.0); Hemoglobin 13.9 g/dL (12.0-16.0); Immature Granulocytes Auto 0.10 Thou/mm3 (0.00-0.00); Lymphocytes # (Auto) 2.8 Thou/mm3 (1.0-4.8); Lymphocytes % (Auto) 24 % (10-50); Mean Corpuscular HGB Conc 32.1 g/dl (31.0-37.0); Mean Corpuscular Hemoglobin 24.6 pg (25.0-35.0); Mean Corpuscular Volume 77 fL (80-100); Monocytes # (Auto) 0.9 Thou/mm3 (0.0-0.8); Monocytes % (Auto) 8 % (0-12); Neutrophils # (Auto) 7.6 Thou/mm3 (1.8-7.7); Neutrophils % (Auto) 65 % (37-80); Nucleated Red Blood Cell # 0.00 Thou/mm3 (0.00-0.00); Nucleated Red Blood Cell % 0 /100 WBC (0); Platelet Count 335 Thou/mm3 (140-440); RDW Standard Deviation 48.0 fL (36.4-46.3); Red Blood Count 5.65 Miln/mm3 (4.00-5.20); White Blood Count 11.7 Thou/mm3 (3.6-11.0)
[2025-05-06 10:47] LABS: Anion Gap 10 (7-16); BUN/Creatinine Ratio 15 Ratio (12-20); Blood Urea Nitrogen 15 mg/dL (9-23); Calcium 9.8 mg/dL (8.3-10.6); Carbon Dioxide 27.1 mMol/L (20.0-31.0); Chloride 105 mMol/L (98-107); Creatinine (Component) 1.0 mg/dL (0.6-1.3); Glucose 127 mg/dL (74-106); Osmolality,Calculated 285 (275-295); Potassium 3.8 mMol/L (3.4-5.1); Sodium 142 mMol/L (136-145); eGFR 59 See Note
[2025-05-06 10:58] LABS: Sed Rate (ESR) 6 mm/hr (0-30)
== END | disposition home or self-care (01) ==
LOC: COPL 09:03
PROVIDERS: PCP Family Medicine; Referring Provider Nurse Practitioner Family; Visit Provider Nurse Practitioner Family
DX: M46.46 Discitis, unspecified, lumbar region (principal)
CPT/HCPCS: 36415; 80048; 85025; 85652

== ENCOUNTER → 2025-05-14 | Outpatient (CLI) | payer MEDICARE, BC, SELFPAY ==
[2025-05-14 14:29] LABS: Basophils # (Auto) 0.1 Thou/mm3 (0.0-0.2); Basophils % (Auto) 1 % (0-2.5); Eosinophils # (Auto) 0.5 Thou/mm3 (0.0-0.5); Eosinophils % (Auto) 4 % (0-10); Hematocrit 43.3 % (36.0-46.0); Hemoglobin 13.8 g/dL (12.0-16.0); Immature Granulocytes Auto 0.10 Thou/mm3 (0.00-0.00); Lymphocytes # (Auto) 5.1 Thou/mm3 (1.0-4.8); Lymphocytes % (Auto) 36 % (10-50); Mean Corpuscular HGB Conc 31.9 g/dl (31.0-37.0); Mean Corpuscular Hemoglobin 24.7 pg (25.0-35.0); Mean Corpuscular Volume 78 fL (80-100); Monocytes # (Auto) 1.0 Thou/mm3 (0.0-0.8); Monocytes % (Auto) 8 % (0-12); Neutrophils # (Auto) 7.1 Thou/mm3 (1.8-7.7); Neutrophils % (Auto) 51 % (37-80); Nucleated Red Blood Cell # 0.00 Thou/mm3 (0.00-0.00); Nucleated Red Blood Cell % 0 /100 WBC (0); Platelet Count 386 Thou/mm3 (140-440); RDW Standard Deviation 50.0 fL (36.4-46.3); Red Blood Count 5.59 Miln/mm3 (4.00-5.20); White Blood Count 13.9 Thou/mm3 (3.6-11.0)
[2025-05-14 14:46] LABS: Sed Rate (ESR) 1 mm/hr (0-30)
[2025-05-14 14:50] LABS: Anion Gap 11 (7-16); BUN/Creatinine Ratio 23 Ratio (12-20); Blood Urea Nitrogen 21 mg/dL (9-23); Calcium 9.9 mg/dL (8.3-10.6); Carbon Dioxide 25.2 mMol/L (20.0-31.0); Chloride 107 mMol/L (98-107); Creatinine (Component) 0.9 mg/dL (0.6-1.3); Glucose 88 mg/dL (74-106); Osmolality,Calculated 286 (275-295); Potassium 4.1 mMol/L (3.4-5.1); Sodium 143 mMol/L (136-145); eGFR > 60 See Note
== END | disposition home or self-care (01) ==
LOC: COPL 13:02
PROVIDERS: PCP Nurse Practitioner Family; Referring Provider Nurse Practitioner Family; Visit Provider Nurse Practitioner Family
DX: M46.46 Discitis, unspecified, lumbar region (principal)
CPT/HCPCS: 36415; 80048; 85025; 85652

== ENCOUNTER → 2025-05-27 | Outpatient (CLI) | payer MEDICARE, BC, SELFPAY ==
--- NOTE | 2025-05-27 08:30 | XR_ITS ---
Examination: Nuclear medicine 3 phase bone scan Date and time: May 27 1633 hours INDICATIONS: Low back pain months, discitis L5-S1 L2-L3 levels on MRI examination April 02, 2025 TECHNIQUE AND FINDINGS: Intravenous administration 23.0 mCi technetium 99m DTPA, no Flow and blood: Static images obtained Minimal increased uptake L3 IMPRESSION: No findings diagnostic for osteomyelitis discitis`
== END | disposition home or self-care (01) ==
PROVIDERS: PCP Nurse Practitioner Family; Referring Provider Nurse Practitioner Family; Visit Provider Nurse Practitioner Family
DX: M46.46 Discitis, unspecified, lumbar region (principal)
CPT/HCPCS: 78315; A9503

== ENCOUNTER → 2025-07-08 | Outpatient (CLI) | payer MEDICARE, BC, SELFPAY ==
--- NOTE | 2025-07-08 | XR_ITS ---
Examination: Lumbar spine, 5 views Technique: Lumbar spine AP, lateral, coned lateral lower lumbar spine, bilateral obliques 5 views Exam date and time: July 08, 2025, 0728 hours, comparison February 07, 2019 INDICATIONS: Lower back pain 1 year. FINDINGS: Lumbar dextroscoliosis 15 degrees Prominent osteopenia Mild narrowing left hip joint Diffuse significant facet arthropathy Diffuse lumbar degenerative disc disease, advanced L5-S1 No spondylolisthesis IMPRESSION: Diffuse lumbar degenerative disc disease, advanced L5-S1
[2025-07-08 09:15] LABS: Basophils # (Auto) 0.1 Thou/mm3 (0.0-0.2); Basophils % (Auto) 1 % (0-2.5); Eosinophils # (Auto) 0.3 Thou/mm3 (0.0-0.5); Eosinophils % (Auto) 3 % (0-10); Hematocrit 40.9 % (36.0-46.0); Hemoglobin 13.0 g/dL (12.0-16.0); Immature Granulocytes Auto 0.12 Thou/mm3 (0.00-0.00); Lymphocytes # (Auto) 2.4 Thou/mm3 (1.0-4.8); Lymphocytes % (Auto) 26 % (10-50); Mean Corpuscular HGB Conc 31.8 g/dl (31.0-37.0); Mean Corpuscular Hemoglobin 24.7 pg (25.0-35.0); Mean Corpuscular Volume 78 fL (80-100); Monocytes # (Auto) 1.0 Thou/mm3 (0.0-0.8); Monocytes % (Auto) 10 % (0-12); Neutrophils # (Auto) 5.4 Thou/mm3 (1.8-7.7); Neutrophils % (Auto) 59 % (37-80); Nucleated Red Blood Cell # 0.00 Thou/mm3 (0.00-0.00); Nucleated Red Blood Cell % 0 /100 WBC (0); Platelet Count 338 Thou/mm3 (140-440); RDW Standard Deviation 47.7 fL (36.4-46.3); Red Blood Count 5.27 Miln/mm3 (4.00-5.20); White Blood Count 9.2 Thou/mm3 (3.6-11.0)
[2025-07-08 09:19] LABS: C-Reactive Protein < 0.5 mg/dL (0.0-0.9)
[2025-07-08 10:05] LABS: Sed Rate (ESR) 6 mm/hr (0-30)
== END | disposition home or self-care (01) ==
LOC: CDIM 07:11 → COPL 08:01
PROVIDERS: PCP Family Medicine; Referring Provider Orthopaedic Surgery Orthopaedic Surgery of the Spine; Visit Provider Orthopaedic Surgery Orthopaedic Surgery of the Spine
DX: M54.16 Radiculopathy, lumbar region (principal); M48.061 Spinal stenosis, lumbar region without neurogenic claudication; M51.360 Other intervertebral disc degeneration, lumbar region with discogenic back pain only
CPT/HCPCS: 36415; 72110; 85025; 85652; 86140

== ENCOUNTER → 2025-09-03 | Outpatient (CLI) | payer MEDICARE, BC, SELFPAY ==
[2025-09-03 15:18] LABS: Basophils # (Auto) 0.1 Thou/mm3 (0.0-0.2); Basophils % (Auto) 1 % (0-2.5); Eosinophils # (Auto) 0.3 Thou/mm3 (0.0-0.5); Eosinophils % (Auto) 4 % (0-10); Hematocrit 40.5 % (36.0-46.0); Hemoglobin 13.2 g/dL (12.0-16.0); Immature Granulocytes Auto 0.07 Thou/mm3 (0.00-0.00); Lymphocytes # (Auto) 2.7 Thou/mm3 (1.0-4.8); Lymphocytes % (Auto) 34 % (10-50); Mean Corpuscular HGB Conc 32.6 g/dl (31.0-37.0); Mean Corpuscular Hemoglobin 24.9 pg (25.0-35.0); Mean Corpuscular Volume 76 fL (80-100); Monocytes # (Auto) 0.9 Thou/mm3 (0.0-0.8); Monocytes % (Auto) 11 % (0-12); Neutrophils # (Auto) 4.0 Thou/mm3 (1.8-7.7); Neutrophils % (Auto) 50 % (37-80); Nucleated Red Blood Cell # 0.00 Thou/mm3 (0.00-0.00); Nucleated Red Blood Cell % 0 /100 WBC (0); Platelet Count 280 Thou/mm3 (140-440); RDW Standard Deviation 44.1 fL (36.4-46.3); Red Blood Count 5.31 Miln/mm3 (4.00-5.20); White Blood Count 8.0 Thou/mm3 (3.6-11.0)
[2025-09-03 15:42] LABS: Anion Gap 9 (7-16); BUN/Creatinine Ratio 13 Ratio (12-20); Blood Urea Nitrogen 13 mg/dL (9-23); Calcium 9.2 mg/dL (8.3-10.6); Carbon Dioxide 29.6 mMol/L (20.0-31.0); Chloride 106 mMol/L (98-107); Creatinine (Component) 1.0 mg/dL (0.6-1.3); Glucose 187 mg/dL (74-106); Osmolality,Calculated 293 (275-295); Potassium 3.4 mMol/L (3.4-5.1); Sodium 145 mMol/L (136-145); eGFR 59 See Note
[2025-09-03 15:43] LABS: Sed Rate (ESR) 19 mm/hr (0-30)
== END | disposition home or self-care (01) ==
LOC: COPL 14:20
PROVIDERS: PCP Nurse Practitioner Family; Referring Provider Nurse Practitioner Family; Visit Provider Nurse Practitioner Family
DX: M46.46 Discitis, unspecified, lumbar region (principal)
CPT/HCPCS: 36415; 80048; 85025; 85652